=== PATIENT | female | born 1985 | race Caucasian/White ===

== ENCOUNTER 2017-07-23 17:37 | Emergency (ER) | payer BC ==
[2017-07-23 17:41] VITALS: BP 122/90; PULSE 94; RESP 20; TEMP 97.4
--- NOTE | 2017-07-23 18:14 | ED ---
General Adult HPI - General Chief complaint: Dental/Oral Stated complaint: dental pain Time Seen by Provider: 07/23/17 17:43 Source: patient, RN notes reviewed Mode of arrival: ambulatory Limitations: no limitations - History of Present Illness Initial comments: Patient 32-year-old female who presents emergency room today with a chief complaint of increased dental pain. Patient does admit that pain started last night. Does admit that she is trying follow-up the dentist. Patient does admit to some mild swelling. Denies any drainage or discharge. Denies any other symptoms. Patient denies any recent fever, chills, shortness of breath, chest pain, back pain, abdominal pain, nausea or vomiting, numbness or tingling , headaches or visual changes, or any other complaints. - Related Data Home Medications Medication Instructions Recorded Confirmed Albuterol Inhaler [Ventolin 1 - 2 puff INHALATION Q6HR PRN 11/15/14 07/07/15 Inhaler] Citalopram Hydrobromide [CeleXA] 20 mg PO DAILY 11/15/14 07/07/15 lamoTRIgine [LaMICtal] 100 mg PO DAILY 11/15/14 07/07/15 traZODone HCL [Desyrel] 50 mg PO HS 11/15/14 07/07/15 Previous Rx's Medication Instructions Recorded Acetaminophen-Codeine 300-30mg 1 tab PO Q4H PRN #20 tablet 02/16/16 [Tylenol #3] Clindamycin HCl 300 mg PO Q6HR #40 cap 02/16/16 Acetaminophen-Codeine 300-30mg 1 each PO Q6H PRN #8 tablet 07/23/17 [Tylenol #3] Amoxicillin 500 mg PO Q8H 10 Days day 07/23/17 Allergies Allergy/AdvReac Type Severity Reaction Status Date / Time Penicillins Allergy Unknown Verified 07/23/17 17:41 Review of Systems ROS Statement: Those systems with pertinent positive or pertinent negative responses have been documented in the HPI. ROS Other: All systems not noted in ROS Statement are negative. Past Medical History Past Medical History: Asthma History of Any Multi-Drug Resistant Organisms: None Reported Past Surgical History: Cholecystectomy Past Psychological History: Anxiety, Bipolar Smoking Status: Never smoker Past Alcohol Use History: None Reported Past Drug Use History: None Reported General Exam - General Exam Comments Initial Comments: General: The patient is awake and alert, in no distress, and does not appear acutely ill. Eye: Pupils are equal, round and reactive to light, extra-ocular movements are intact. No nystagmus. There is normal conjunctiva bilaterally. No signs of icterus. Ears, nose, mouth and throat: There are moist mucous membranes and no oral lesions. Missing tooth #29. Locally tender of the gum line over tooth #28. No sign of abscess. Uvula midline. Neck: The neck is supple, there is no tenderness or JVD. Musculoskeletal: Normal ROM, no tenderness. Strength 5/5. Sensation intact. Pulses equal bilaterally 2+. Neurological: A&O x 3. CN II-XII intact, There are no obvious motor or sensory deficits. Coordination appears grossly intact. Speech is normal. Skin: Skin is warm and dry and no rashes or lesions are noted. Psychiatric: Cooperative, appropriate mood & affect, normal judgment. Limitations: no limitations Course Vital Signs 07/23/17 17:39 Temperature 97.4 F L Pulse Rate 94 Respiratory 20 Rate Blood Pressure 122/90 O2 Sat by Pulse 100 Oximetry Medical Decision Making - Medical Decision Making Please follow-up dentist as discussed. Please use antibiotic as prescribed. Please return to emergency room for any other concerns. Disposition Clinical Impression: Dental implant pain Disposition: HOME SELF-CARE Condition: Good Instructions: Dental Abscess (ED) Additional Instructions: Please use medication as discussed. Please follow-up with dentist/family doctor in the next 2 days of symptoms have not improved. Please return to emergency room if the symptoms increase or worsen or for any other concerns. Prescriptions: Acetaminophen-Codeine 300-30mg [Tylenol #3] 1 each PO Q6H PRN #8 tablet PRN Reason: Pain Amoxicillin 500 mg PO Q8H 10 Days day Referrals: Brea Randall MD [Primary Care Provider] - 1-2 days Time of Disposition: 18:11
== END 2017-07-23 18:19 | disposition home or self-care (01) ==
LOC: EC 17:37
DX: M27.69 Other endosseous dental implant failure (principal); F31.9 Bipolar disorder, unspecified; F41.9 Anxiety disorder, unspecified; Z88.0 Allergy status to penicillin; Z79.899 Other long term (current) drug therapy
CPT/HCPCS: 99282

== ENCOUNTER → 2018-01-23 | Outpatient (CLI) | payer BC ==
--- NOTE | 2018-01-23 18:06 | US ---
EXAMINATION TYPE: US venous doppler duplex LE LT DATE OF EXAM: 01/23/2018 5:50 PM COMPARISON: NONE CLINICAL HISTORY: M79.604 Pain in lower limb left. left lower leg pain SIDE PERFORMED: left TECHNIQUE: The lower extremity deep venous system is examined utilizing real time linear array sonog lydia with graded compression, doppler sonography and color-flow sonography. VESSELS IMAGED: External Iliac Vein (EIV) Common Femoral Vein Deep Femoral Vein Greater Saphenous Vein * Femoral Vein Popliteal Vein Small Saphenous Vein * Proximal Calf Veins (* superficial vessels) Left Leg: No evidence of DVT as visualized IMPRESSION: Negative exam. No evidence of deep venous thrombosis in the left leg.
== END | disposition home or self-care (01) ==
LOC: RADUSMAIN 17:29
PROVIDERS: ATTEND Physician Assistant
DX: M79.605 Pain in left leg (principal)

== ENCOUNTER 2019-01-05 15:26 | Emergency (ER) | payer BC ==
--- NOTE | 2019-01-05 17:31 | US ---
EXAMINATION TYPE: US venous doppler duplex LE DATE OF EXAM: 01/05/2019 5:20 PM COMPARISON: NONE CLINICAL HISTORY: Pain. Pt states leg pain SIDE PERFORMED: Bilateral TECHNIQUE: The lower extremity deep venous system is examined utilizing real time linear array sonog lydia with graded compression, doppler sonography and color-flow sonography. VESSELS IMAGED: External Iliac Vein (EIV) Common Femoral Vein Deep Femoral Vein Greater Saphenous Vein * Femoral Vein Popliteal Vein Small Saphenous Vein * Proximal Calf Veins (* superficial vessels) Right Leg: Negative for DVT, pt unable to tolerate compression distal femoral vein Left Leg: Negative for DVT, pt unable to tolerate compression distal femoral vein IMPRESSION: No evidence of deep venous thrombosis in both legs.
[2019-01-05 17:47] LABS: Basophils # (A) 0.1 k/uL (0-0.2); Basophils % (A) 1 %; Eosinophils # (A) 0.3 k/uL (0-0.7); Eosinophils % (A) 3 %; HCT 40.9 % (34.0-46.0); HGB 13.4 gm/dL (11.4-16.0); Lymphocytes # (A) 1.7 k/uL (1.0-4.8); Lymphocytes % (A) 18 %; MCH 27.6 pg (25.0-35.0); MCHC 32.7 g/dL (31.0-37.0); MCV 84.4 fL (80.0-100.0); Mean Platelet Volume 6.6; Monocytes # (A) 0.4 k/uL (0-1.0); Monocytes % (A) 5 %; Neutrophils # (A) 6.8 k/uL (1.3-7.7); Neutrophils % (A) 73 %; Platelet Count 307 k/uL (150-450); RBC 4.85 m/uL (3.80-5.40); RDW 13.7 % (11.5-15.5); WBC 9.3 k/uL (3.8-10.6)
[2019-01-05 17:56] LABS: ALT 21 U/L (9-52); AST 20 U/L (14-36); African American GFR (CKD) >90 (>60 ml/min/1.73 sqM); Alkaline Phosphatase 85 U/L (38-126); Anion Gap 7 mmol/L; Blood Urea Nitrogen 13 mg/dL (7-17); Calcium 9.2 mg/dL (8.4-10.2); Carbon Dioxide 26 mmol/L (22-30); Chloride 107 mmol/L (98-107); Creatine Kinase 74 U/L (30-135); Glucose 95 mg/dL (74-99); Magnesium 2.1 mg/dL (1.6-2.3); Potassium 3.8 mmol/L (3.5-5.1); Sodium 140 mmol/L (137-145); Total Bilirubin 0.4 mg/dL (0.2-1.3)
--- NOTE | 2019-01-05 19:13 | CT ---
EXAMINATION TYPE: CT lumbar spine wo con DATE OF EXAM: 01/05/2019 7:03 PM COMPARISON: None HISTORY: Bilateral leg weakness CT DLP: 2040 mGycm Automated exposure control for dose reduction was used. Unenhanced CT of the lumbar spine was performed. Bone and soft tissue window settings are submitted as well as coronal and sagittal reconstructions. Lumbar vertebra have normal alignment. There is narrowing of L4-5 disc space that could be congenital . The sacroiliac joints are intact. There is no lumbar paraspinal mass. There is no evidence of lumba r spinal stenosis. There is bilateral narrowing of the neural foramina at L4-5 due to disc space narrowing. There is ana e low density in the anterior aspect of the spinal canal at the L4 level on the left side. It is not clear if this is due to lumbar disc herniation. This could be due to vasculature. IMPRESSION: No spinal stenosis. There is some neural foraminal narrowing and mild lateral recess stenosis at L4-5 . 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 Lumbar spine is probably not changed compared to old MR scan of 01/22/2014.
--- NOTE | 2019-01-05 19:17 | ED ---
Extremity Problem HPI - General Chief complaint: Extremity Problem,Nontraumatic Stated complaint: Leg pain Time Seen by Provider: 01/05/19 15:42 Source: patient Mode of arrival: wheelchair Limitations: no limitations - History of Present Illness Initial comments: The patient is a 33-year-old female who presents to the emergency room with report of bilateral lower extremity pain. She admits that it started while she was at work today. She describes a sharp shooting sensation which starts in her mid thigh and radiates down toward feet. She denies any back or hip pain. Denies any trauma. States that her pain was so severe that it felt like her l egs would give out on her. She did not have a fall or syncopal episode. She denies any numbness or tingling. No rashes or skin color changes. No history of similar in the past. The pain was too severe that she ended up having to sit down work. Her grandmother then pick her up and brought her to the emergency room for evaluation. She denies any additional symptoms include fevers, chills, nausea or vomiting. No history of DVTs or PEs. No known trauma. No family history of blood clotting disorders. There are no alleviating, precipitating or modifying factors - Related Data Home Medications Medication Instructions Recorded Confirmed Albuterol Inhaler [Ventolin 1 - 2 puff INHALATION Q6HR PRN 11/15/14 07/07/15 Inhaler] Citalopram Hydrobromide [CeleXA] 20 mg PO DAILY 11/15/14 07/07/15 lamoTRIgine [LaMICtal] 100 mg PO DAILY 11/15/14 07/07/15 traZODone HCL [Desyrel] 50 mg PO HS 11/15/14 07/07/15 Previous Rx's Medication Instructions Recorded Acetaminophen-Codeine 300-30mg 1 tab PO Q4H PRN #20 tablet 02/16/16 [Tylenol #3] Clindamycin HCl 300 mg PO Q6HR #40 cap 02/16/16 Acetaminophen-Codeine 300-30mg 1 each PO Q6H PRN #8 tablet 07/23/17 [Tylenol #3] Amoxicillin 500 mg PO Q8H 10 Days day 07/23/17 Allergies Allergy/AdvReac Type Severity Reaction Status Date / Time Penicillins Allergy Unknown Verified 01/05/19 15:37 Review of Systems ROS Statement: Those systems with pertinent positive or pertinent negative responses have been documented in the HPI. ROS Other: All systems not noted in ROS Statement are negative. Past Medical History Past Medical History: Asthma History of Any Multi-Drug Resistant Organisms: None Reported Past Surgical History: Cholecystectomy Past Psychological History: Anxiety, Bipolar Smoking Status: Never smoker Past Alcohol Use History: None Reported Past Drug Use History: None Reported General Exam Limitations: no limitations General appearance: alert, in no apparent distress Head exam: Present: atraumatic, normocephalic, normal inspection Eye exam: Present: normal appearance, PERRL, EOMI. Absent: scleral icterus, conjunctival injection, periorbital swelling ENT exam: Present: normal exam, mucous membranes moist Neck exam: Present: normal inspection. Absent: tenderness, meningismus, ly mphadenopathy Respiratory exam: Present: normal lung sounds bilaterally. Absent: respiratory distress, wheezes, rales, rhonchi, stridor Cardiovascular Exam: Present: regular rate, normal rhythm, normal heart sounds. Absent: systolic murmur, diastolic murmur, rubs, gallop, clicks GI/Abdominal exam: Present: soft, normal bowel sounds. Absent: distended, tenderness, guarding, rebound, rigid Extremities exam: Present: full ROM, tenderness (tenderness to palpation of the anterior thighs), normal capillary refill, other (skin on anterior thighs reveals multiple linear cut tucker in different stages of healing. There are a few, recent abrasions that are scabbed over. They are consistent with self inflicted cut tucker. No surrouding edema or cellulitic changes. 5/5 muscle strength in her bilateral lower extremities. ). Absent: pedal edema, joint swelling, calf tenderness Back exam: Present: normal inspection Neurological exam: Present: alert, oriented X3, CN II-XII intact Psychiatric exam: Present: normal affect, normal mood Skin exam: Present: warm, dry, intact, normal color. Absent: rash Course Vital Signs 01/05/19 01/05/19 15:35 19:51 Temperature 97.8 F 97.9 F Pulse Rate 80 78 Respiratory 16 18 Rate Blood Pressure 122/90 120/71 O2 Sat by Pulse 98 98 Oximetry Medical Decision Making - Medical Decision Making Upon arrival the patient was placed into room 25. I did discuss diagnosis, differential and treatment options after a thorough history and physical exam. I recommended bilateral lower extremity Dopplers as well as a CT of the patient's lumbar spine. I did recommend laboratory studies to evaluate for electrolyte abnormality. The patient did agree to this. During my physical exam I did recognize several lacerations in different stages of healing pn the patient's anterior thigh. These are consistent with self inflicted abrasions. I did confront the patient and she does admit to "cutting". She has a history of depression and sees a therapist. Majority of the lacerations are old however are scattered ones on the right thigh that do appear newer. She reports that she does see her therapist, last of which saw her on the second. Therapist is aware that she does cut and has for several years. The patient denies that she is acutely suicidal, homicidal or hallucinating. The patient does have her laboratory studies performed. She also has her imaging performed. I discussed the results with the patient. She is ambulatory to the bathroom without difficulty. I did recommend evaluation by the social work nurse. She does call and discuss the case with the patient's primary care physician. The patient will need a referral for a psychiatrist. The health and social care teacher does request this so that the patient may be seen sooner by a psychiatrist. The patient does not currently meet inpatient criteria. The patient was comfortable with the treatment plan. She'll be discharged home and needs to follow up with Dr. Randall within 2-4 days. Return to the ED for any new or worsening symptoms. The patient agreed to the treatment plan was discharged home ambulatory in stable condition - Differential Diagnosis acute bilateral leg pain, depression - Lab Data Result diagrams: 01/05/19 17:28 01/05/19 17:24 Lab Results 01/05/19 01/05/19 01/05/19 Range/Units 17:24 17:28 17:54 WBC 9.3 (3.8-10.6) k/uL RBC 4.85 (3.80-5.40) m/uL Hgb 13.4 (11.4-16.0) gm/dL Hct 40.9 (34.0-46.0) % MCV 84.4 (80.0-100.0) fL MCH 27.6 (25.0-35.0) pg MCHC 32.7 (31.0-37.0) g/dL RDW 13.7 (11.5-15.5) % Plt Count 307 (150-450) k/uL Neutrophils % 73 % Lymphocytes % 18 % Monocytes % 5 % Eosinophils % 3 % Basophils % 1 % Neutrophils # 6.8 (1.3-7.7) k/uL Lymphocytes # 1.7 (1.0-4.8) k/uL Monocytes # 0.4 (0-1.0) k/uL Eosinophils # 0.3 (0-0.7) k/uL Basophils # 0.1 (0-0.2) k/uL Sodium 140 (137-145) mmol/L Potassium 3.8 (3.5-5.1) mmol/L Chloride 107 (98-107) mmol/L Carbon Dioxide 26 (22-30) mmol/L Anion Gap 7 mmol/L BUN 13 (7-17) mg/dL Creatinine 0.78 (0.52-1.04) mg/dL Est GFR (CKD-EPI)AfAm >90 (>60 ml/min/1.73 sqM) Est GFR (CKD-EPI)NonAf >90 (>60 ml/min/1.73 sqM) Glucose 95 (74-99) mg/dL Calcium 9.2 (8.4-10.2) mg/dL Magnesium 2.1 (1.6-2.3) mg/dL Total Bilirubin 0.4 (0.2-1.3) mg/dL AST 20 (14-36) U/L ALT 21 (9-52) U/L Alkaline Phosphatase 85 (38-126) U/L Creatine Kinase 74 (30-135) U/L Total Protein 7.0 (6.3-8.2) g/dL Albumin 4.0 (3.5-5.0) g/dL Urine HCG, Qual Not Detected (Not Detectd) Disposition Clinical Impression: Leg pain, bilateral Disposition: HOME SELF-CARE Condition: Stable Instructions (If sedation given, give patient instructions): Leg Pain (ED) Additional Instructions: Please follow-up with your primary care physician and your therapist within one week. Return to the emergency room for any new or worsening symptoms Is patient prescribed a controlled substance at d/c from ED?: No Referrals: Brea Randall MD [Primary Care Provider] - 1-2 days Time of Disposition: 19:17
[2019-01-05 19:52] VITALS: BP 120/71; PULSE 78; RESP 18; TEMP 97.9
== END 2019-01-05 19:52 | disposition home or self-care (01) ==
LOC: EC 15:26
DX: M79.604 Pain in right leg (principal); M79.605 Pain in left leg; S71.111A Laceration without foreign body, right thigh, initial encounter; S71.112D Laceration without foreign body, left thigh, subsequent encounter; M79.671 Pain in right foot; M79.672 Pain in left foot; J45.909 Unspecified asthma, uncomplicated; F31.9 Bipolar disorder, unspecified; F41.9 Anxiety disorder, unspecified; Z88.0 Allergy status to penicillin; Z79.899 Other long term (current) drug therapy; X78.9XXA Intentional self-harm by unspecified sharp object, initial encounter; X78.9XXD Intentional self-harm by unspecified sharp object, subsequent encounter
CPT/HCPCS: 36415; 72131; 80053; 81025; 82550; 83735; 85025; 93970; 99284

== ENCOUNTER → 2019-03-30 | Outpatient (CLI) | payer BC ==
--- NOTE | 2019-03-30 17:32 | MR ---
EXAMINATION TYPE: MR geovanna/ulises wo con DATE OF EXAM: 03/30/2019 COMPARISON: None HISTORY: Neck pain into mid/low back, weakness in legs CONTRAST: Performed utilizing 0 mL intravenous Gadavist gadolinium contrast. TECHNIQUE: Multiplanar multiecho imaging on a 3.0 Anupama magnet is performed through the cervical spin e. FINDINGS: The craniovertebral junction is normal. Vertebral body alignment is normal. There is dis c desiccation in the upper and mid cervical spine. C7-T1: No focal disc herniation or significant disc bulge is evident. No spinal canal stenosis or n eural foraminal stenosis is present. C6-7: No focal disc herniation or significant disc bulge is evident. No spinal canal stenosis or tenisha ral foraminal stenosis is present. C5-6: There is a large broad-based disc bulge with mild anterior thecal sac flattening. No AP spinal canal stenosis present. Neural foramen are patent. C4-5: No focal disc herniation or significant disc bulge is evident. No spinal canal stenosis or tenisha ral foraminal stenosis is present. C3-4: No focal disc herniation or significant disc bulge is evident. No spinal canal stenosis or tenisha ral foraminal stenosis is present. C2-3: No focal disc herniation or significant disc bulge is evident. No spinal canal stenosis or tenisha ral foraminal stenosis is present. IMPRESSIONS: 1. Broad based disc bulge with mild anterior thecal sac flattening without spinal canal stenosis at C 5-C6 level. EXAMINATION TYPE: MR geovanna/ulises wo con DATE OF EXAM: 03/30/2019 COMPARISON: None HISTORY: Neck pain into mid/low back, weakness in legs CONTRAST: Performed utilizing 0 mL intravenous Gadavist gadolinium contrast. TECHNIQUE: Multiplanar, multiecho imaging on a 3.0 Anupama magnet is performed through the thoracic spi ne. Spinal cord maintains normal signal through its visualized course. Vertebral body alignment is normal. Vertebral body heights are preserved. Disc heights are preserved. There is disc desiccation within the mid thoracic levels. At T6-T7 there is right paracentral disc bulging with mild anterior thecal sac impression. This comes in close approximation with the spinal cord. No spinal canal stenosis or cord deformity is evident. No spinal canal stenosis is evident. IMPRESSIONS: 1. Right paracentral disc bulging with mild to moderate anterior thecal sac compression T6-T7. This c omes in close approximation with the spinal cord
== END | disposition home or self-care (01) ==
LOC: RADMRIMAIN 12:43
PROVIDERS: ATTEND Orthopaedic Surgery Orthopaedic Surgery of the Spine
DX: M51.84 Other intervertebral disc disorders, thoracic region (principal); M54.2 Cervicalgia
CPT/HCPCS: 72141; 72146

== ENCOUNTER 2019-07-12 17:36 | Emergency (ER) | payer OTHER, BC ==
[2019-07-12 17:55] VITALS: RESP 18; TEMP 98.2
[2019-07-12] MEDS ORDERED: SODIUM CHLORIDE 0.9% 500 ML 500 ML IV STA (18:37)
[2019-07-12] MEDS ORDERED: MORPHINE SULFATE 4 MG/ML SYRINGE IVP STA (18:40)
[2019-07-12] MEDS ORDERED: ONDANSETRON 4 MG/2 ML VIAL IVP STA (18:40)
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
[2019-07-12 19:10] LABS: Basophils # (A) 0.1 k/uL (0-0.2); Basophils % (A) 1 %; Eosinophils # (A) 0.2 k/uL (0-0.7); Eosinophils % (A) 1 %; HCT 44.4 % (34.0-46.0); HGB 14.6 gm/dL (11.4-16.0); Lymphocytes # (A) 1.2 k/uL (1.0-4.8); Lymphocytes % (A) 10 %; MCHC 32.8 g/dL (31.0-37.0); MCV 85.4 fL (80.0-100.0); Mean Platelet Volume 6.9; Monocytes # (A) 0.5 k/uL (0-1.0); Monocytes % (A) 4 %; Neutrophils # (A) 9.5 k/uL (1.3-7.7); Neutrophils % (A) 82 %; Platelet Count 286 k/uL (150-450); RBC 5.19 m/uL (3.80-5.40); RDW 13.1 % (11.5-15.5); WBC 11.5 k/uL (3.8-10.6)
[2019-07-12 19:31] LABS: ALT 36 U/L (4-34); AST 42 U/L (14-36); African American GFR (CKD) >90 (>60 ml/min/1.73 sqM); Alcohol <10 mg/dL; Alkaline Phosphatase 94 U/L (38-126); Anion Gap 11 mmol/L; Blood Urea Nitrogen 12 mg/dL (7-17); Calcium 9.1 mg/dL (8.4-10.2); Carbon Dioxide 21 mmol/L (22-30); Chloride 108 mmol/L (98-107); Glucose 94 mg/dL (74-99); Non-African American GFR(CKD) >90 (>60 ml/min/1.73 sqM); Sodium 140 mmol/L (137-145); Total Bilirubin 0.8 mg/dL (0.2-1.3); Total Protein 6.9 g/dL (6.3-8.2)
[2019-07-12 19:45] LABS: Potassium 4.5 mmol/L (3.5-5.1)
[2019-07-12 20:03] LABS: Amylase 44 U/L (30-110)
[2019-07-12] MEDS ORDERED: HYDROmorphone 0.5 MG/0.5 ML SYRINGE IVP STA (20:48)
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
--- NOTE | 2019-07-12 22:13 | XR ---
EXAMINATION TYPE: XR chest 2V DATE OF EXAM: 07/12/2019 COMPARISON: 07/07/2015 HISTORY: Cough and fever TECHNIQUE: 2 views FINDINGS: There is no heart failure nor confluent pneumonic infiltrate. Costophrenic angles are clear . There are no hilar masses. IMPRESSION: No active cardiopulmonary disease. No change.
[2019-07-12 23:45] VITALS: BP 126/74; PULSE 77
== END 2019-07-12 23:43 | disposition home or self-care (01) ==
LOC: EC 17:36
DX: S99.912A Unspecified injury of left ankle, initial encounter (principal); R10.10 Upper abdominal pain, unspecified; R04.0 Epistaxis; R60.0 Localized edema; R10.2 Pelvic and perineal pain; M25.551 Pain in right hip; M79.89 Other specified soft tissue disorders; J45.909 Unspecified asthma, uncomplicated; F31.9 Bipolar disorder, unspecified; F41.9 Anxiety disorder, unspecified; Z88.0 Allergy status to penicillin; Z79.899 Other long term (current) drug therapy; Z90.49 Acquired absence of other specified parts of digestive tract; V47.5XXA Car driver injured in collision with fixed or stationary object in traffic accident, initial encounter; Y92.410 Unspecified street and highway as the place of occurrence of the external cause
CPT/HCPCS: 36415; 93005; 80053; 82150; 83690; 84484; 85025; 80320; 73502; 73610; 73630; 71046; 72125; 70486; 70450; 71260; 74177; 99285; 29515; 96374; 96375 ×2; 96361; J2270; J2405; J1170; Q9967

== ENCOUNTER 2021-01-10 13:29 | Emergency (ER) | payer BC, OTHER ==
[2021-01-10 13:38] VITALS: TEMP 98.2
[2021-01-10 14:56] LABS: Basophils # (A) 0.1 k/uL (0-0.2); Basophils % (A) 1 %; Eosinophils # (A) 0.2 k/uL (0-0.7); Eosinophils % (A) 3 %; HCT 45.5 % (34.0-46.0); HGB 15.4 gm/dL (11.4-16.0); Lymphocytes # (A) 1.6 k/uL (1.0-4.8); Lymphocytes % (A) 18 %; MCH 29.3 pg (25.0-35.0); MCHC 33.9 g/dL (31.0-37.0); MCV 86.6 fL (80.0-100.0); Mean Platelet Volume 7.3; Monocytes # (A) 0.4 k/uL (0-1.0); Monocytes % (A) 4 %; Neutrophils # (A) 6.8 k/uL (1.3-7.7); Neutrophils % (A) 74 %; Platelet Count 274 k/uL (150-450); RBC 5.25 m/uL (3.80-5.40); RDW 13.6 % (11.5-15.5); WBC 9.2 k/uL (3.8-10.6)
--- NOTE | 2021-01-10 15:06 | ED ---
Altered Mental Status HPI - General Chief Complaint: Altered Mental Status Stated Complaint: AMS Time Seen by Provider: 01/10/21 13:39 Source: patient, family, RN notes reviewed Mode of arrival: wheelchair Limitations: no limitations - History of Present Illness Initial Comments: This a 35-year-old female presents emergency from with grandmother for valerie luation of altered mental status. Patient referred back to her usual self at work. Mother received a phone call from her work place. Patient states she took 2 of her Lamictal states this is caused her symptoms. Patient states that this was accidental she forgot she took other one.. Patient is not very forthcoming about information. Denies any illicit drug use no alcohol abuse. Denies any self-harm. - Related Data Home Medications Medication Instructions Recorded Confirmed Albuterol Inhaler (Mhu) [Ventolin 1 - 2 puff INHALATION Q6HR PRN 11/15/14 Inhaler] Citalopram Hydrobromide [CeleXA] 20 mg PO DAILY 11/15/14 07/07/15 lamoTRIgine [LaMICtal] 100 mg PO DAILY 11/15/14 07/07/15 traZODone HCL [Desyrel] 50 mg PO HS 11/15/14 07/07/15 Previous Rx's Medication Instructions Recorded Acetaminophen-Codeine 300-30mg 1 tab PO Q4H PRN #20 tablet 02/16/16 [Tylenol #3] Clindamycin HCl 300 mg PO Q6HR #40 cap 02/16/16 Acetaminophen-Codeine 300-30mg 1 each PO Q6H PRN #8 tablet 07/23/17 [Tylenol #3] Amoxicillin 500 mg PO Q8H 10 Days day 07/23/17 Allergies Allergy/AdvReac Type Severity Reaction Status Date / Time Penicillins Allergy Unknown Verified 01/10/21 13:38 Review of Systems ROS Statement: Those systems with pertinent positive or pertinent negative responses have been documented in the HPI. ROS Other: All systems not noted in ROS Statement are negative. Past Medical History Past Medical History: Asthma History of Any Multi-Drug Resistant Organisms: None Reported Past Surgical History: Cholecystectomy Past Psychological History: Anxiety, Bipolar Smoking Status: Never smoker Past Alcohol Use History: None Reported Past Drug Use History: None Reported General Exam Limitations: no limitations General appearance: alert, in no apparent distress Head exam: Present: atraumatic, normocephalic, normal inspection Eye exam: Present: normal appearance, PERRL, EOMI. Absent: scleral icterus, conjunctival injection, periorbital swelling ENT exam: Present: normal exam, normal oropharynx, mucous membranes moist Neck exam: Present: normal inspection, full ROM. Absent: tenderness, meningismus, lymphadenopathy Respiratory exam: Present: normal lung sounds bilaterally. Absent: respiratory distress, wheezes, rales, rhonchi, stridor Cardiovascular Exam: Present: regular rate, normal rhythm, normal heart sounds. Absent: systolic murmur, diastolic murmur, rubs, gallop, clicks Neurological exam: Present: alert, oriented X3, CN II-XII intact, reflexes normal. Absent: motor sensory deficit Skin exam: Present: warm, dry, intact, normal color. Absent: rash Course Vital Signs 01/10/21 01/10/21 13:32 15:14 Temperature 98.2 F Pulse Rate 79 73 Respiratory 17 16 Rate Blood Pressure 116/88 129/85 O2 Sat by Pulse 99 99 Oximetry Medical Decision Making - Medical Decision Making Patient presented for generalized not feeling well felt that she was altered. Patient's workup was negative. Patient is ambulatory with no difficulty has no confusion. This may be related to migraine or her underlying psychological bipolar disorder they do not want to EPS evaluation. - Lab Data Result diagrams: 01/10/21 14:41 01/10/21 14:41 Lab Results 01/10/21 01/10/21 01/10/21 Range/Units 14:41 14:41 14:41 WBC 9.2 (3.8-10.6) k/uL RBC 5.25 (3.80-5.40) m/uL Hgb 15.4 (11.4-16.0) gm/dL Hct 45.5 (34.0-46.0) % MCV 86.6 (80.0-100.0) fL MCH 29.3 (25.0-35.0) pg MCHC 33.9 (31.0-37.0) g/dL RDW 13.6 (11.5-15.5) % Plt Count 274 (150-450) k/uL MPV 7.3 Neutrophils % 74 % Lymphocytes % 18 % Monocytes % 4 % Eosinophils % 3 % Basophils % 1 % Neutrophils # 6.8 (1.3-7.7) k/uL Lymphocytes # 1.6 (1.0-4.8) k/uL Monocytes # 0.4 (0-1.0) k/uL Eosinophils # 0.2 (0-0.7) k/uL Basophils # 0.1 (0-0.2) k/uL Sodium 138 (137-145) mmol/L Potassium 4.7 (3.5-5.1) mmol/L Chloride 105 (98-107) mmol/L Carbon Dioxide 23 (22-30) mmol/L Anion Gap 10 mmol/L BUN 11 (7-17) mg/dL Creatinine 0.75 (0.52-1.04) mg/dL Est GFR (CKD-EPI)AfAm >90 (>60 ml/min/1.73 sqM) Est GFR (CKD-EPI)NonAf >90 (>60 ml/min/1.73 sqM) Glucose 92 (74-99) mg/dL Calcium 9.4 (8.4-10.2) mg/dL Total Bilirubin 0.7 (0.2-1.3) mg/dL AST 34 (14-36) U/L ALT 28 (4-34) U/L Alkaline Phosphatase 116 (38-126) U/L Ammonia 18 (<30) umol/L Total Protein 7.9 (6.3-8.2) g/dL Albumin 4.8 (3.5-5.0) g/dL Urine Color Urine Appearance (Clear) Urine pH (5.0-8.0) Ur Specific [place] (1.001-1.035) Urine Protein (Negative) Urine Glucose (UA) (Negative) Urine Ketones (Negative) Urine Blood (Negative) Urine Nitrite (Negative) Urine Bilirubin (Negative) Urine Urobilinogen (<2.0) mg/dL Ur Leukocyte Esterase (Negative) Urine RBC (0-5) /hpf Urine WBC (0-5) /hpf Ur Squamous Epith Cells (0-4) /hpf Urine Bacteria (None) /hpf Urine Mucus (None) /hpf Urine Yeast (Budding) (None) /hpf Urine Opiates Screen (NotDetected) Ur Oxycodone Screen (NotDetected) Urine Methadone Screen (NotDetected) Ur Propoxyphene Screen (NotDetected) Ur Barbiturates Screen (NotDetected) U Tricyclic Antidepress (NotDetected) Ur Phencyclidine Scrn (NotDetected) Ur Amphetamines Screen (NotDetected) U Methamphetamines Scrn (NotDetected) U Benzodiazepines Scrn (NotDetected) Urine Cocaine Screen (NotDetected) U Marijuana (THC) Screen (NotDetected) Serum Alcohol <10 mg/dL 01/10/21 Range/Units 15:22 WBC (3.8-10.6) k/uL RBC (3.80-5.40) m/uL Hgb (11.4-16.0) gm/dL Hct (34.0-46.0) % MCV (80.0-100.0) fL MCH (25.0-35.0) pg MCHC (31.0-37.0) g/dL RDW (11.5-15.5) % Plt Count (150-450) k/uL MPV Neutrophils % % Lymphocytes % % Monocytes % % Eosinophils % % Basophils % % Neutrophils # (1.3-7.7) k/uL Lymphocytes # (1.0-4.8) k/uL Monocytes # (0-1.0) k/uL Eosinophils # (0-0.7) k/uL Basophils # (0-0.2) k/uL Sodium (137-145) mmol/L Potassium (3.5-5.1) mmol/L Chloride (98-107) mmol/L Carbon Dioxide (22-30) mmol/L Anion Gap mmol/L BUN (7-17) mg/dL Creatinine (0.52-1.04) mg/dL Est GFR (CKD-EPI)AfAm (>60 ml/min/1.73 sqM) Est GFR (CKD-EPI)NonAf (>60 ml/min/1.73 sqM) Glucose (74-99) mg/dL Calcium (8.4-10.2) mg/dL Total Bilirubin (0.2-1.3) mg/dL AST (14-36) U/L ALT (4-34) U/L Alkaline Phosphatase (38-126) U/L Ammonia (<30) umol/L Total Protein (6.3-8.2) g/dL Albumin (3.5-5.0) g/dL Urine Color Yellow Urine Appearance Clear (Clear) Urine pH 6.0 (5.0-8.0) Ur Specific [place] 1.021 (1.001-1.035) Urine Protein Trace H (Negative) Urine Glucose (UA) Negative (Negative) Urine Ketones Negative (Negative) Urine Blood Large H (Negative) Urine Nitrite Negative (Negative) Urine Bilirubin Negative (Negative) Urine Urobilinogen <2.0 (<2.0) mg/dL Ur Leukocyte Esterase Negative (Negative) Urine RBC >182 H (0-5) /hpf Urine WBC 10 H (0-5) /hpf Ur Squamous Epith Cells 2 (0-4) /hpf Urine Bacteria Rare H (None) /hpf Urine Mucus Occasional H (None) /hpf Urine Yeast (Budding) Occasional H (None) /hpf Urine Opiates Screen Not Detected (NotDetected) Ur Oxycodone Screen Not Detected (NotDetected) Urine Methadone Screen Not Detected (NotDetected) Ur Propoxyphene Screen Not Detected (NotDetected) Ur Barbiturates Screen Not Detected (NotDetected) U Tricyclic Antidepress Not Detected (NotDetected) Ur Phencyclidine Scrn Not Detected (NotDetected) Ur Amphetamines Screen Not Detected (NotDetected) U Methamphetamines Scrn Not Detected (NotDetected) U Benzodiazepines Scrn Not Detected (NotDetected) Urine Cocaine Screen Not Detected (NotDetected) U Marijuana (THC) Screen Not Detected (NotDetected) Serum Alcohol mg/dL Disposition Clinical Impression: Atypical migraine, Stress reaction Disposition: HOME SELF-CARE Condition: Stable Instructions (If sedation given, give patient instructions): Altered Mental Status (ED) Additional Instructions: Please return to the Emergency Department if symptoms worsen or any other concerns. Is patient prescribed a controlled substance at d/c from ED?: No Referrals: Brea Randall MD [Primary Care Provider] - 1-2 days Time of Disposition: 16:29
[2021-01-10 15:07] LABS: ALT 28 U/L (4-34); AST 34 U/L (14-36); African American GFR (CKD) >90 (>60 ml/min/1.73 sqM); Albumin 4.8 g/dL (3.5-5.0); Alcohol <10 mg/dL; Alkaline Phosphatase 116 U/L (38-126); Anion Gap 10 mmol/L; Blood Urea Nitrogen 11 mg/dL (7-17); Calcium 9.4 mg/dL (8.4-10.2); Carbon Dioxide 23 mmol/L (22-30); Chloride 105 mmol/L (98-107); Glucose 92 mg/dL (74-99); Non-African American GFR(CKD) >90 (>60 ml/min/1.73 sqM); Sodium 138 mmol/L (137-145); Total Bilirubin 0.7 mg/dL (0.2-1.3); Total Protein 7.9 g/dL (6.3-8.2)
[2021-01-10 15:11] LABS: Potassium 4.7 mmol/L (3.5-5.1)
[2021-01-10 15:16] VITALS: RESP 16
--- NOTE | 2021-01-10 15:32 | CT ---
EXAMINATION TYPE: CT brain wo con DATE OF EXAM: 01/10/2021 COMPARISON: 07/12/2019 HISTORY: AMS, pt hx bipolar CT DLP: 1173.4 mGycm Automated exposure control for dose reduction was used. Images of the brain obtained without contrast. Ventricles have normal size. There is no mass effect nor midline shift. There is no sign of intracran ial hemorrhage. The calvarium is intact. Skull base is intact. IMPRESSION: Negative unenhanced head CT scan. No change compared to old exam.
[2021-01-10 15:38] LABS: Appearance,Urine Clear (Clear); Bacteria,Urine Rare /hpf; Bilirubin,Urine Negative (Negative); Blood,Urine Large (Negative); Budding Yeast,Urine Occasional /hpf; Color,Urine Yellow; Glucose,Urine (UA) Negative (Negative); Ketones,Urine Negative (Negative); Leukocyte Esterase,Urine Negative (Negative); Mucus,Urine Occasional /hpf; Nitrite,Urine Negative (Negative); Protein,Urine Trace (Negative); RBC,Urine >182 /hpf (0-5); Specific Gravity,Urine 1.021 (1.001-1.035); Squamous Epithelial Cell,Urine 2 /hpf (0-4); Urobilinogen,Urine <2.0 mg/dL (<2.0); WBC,Urine 10 /hpf (0-5)
[2021-01-10 15:57] LABS: Amphetamine Screen,Urine Not Detected (NotDetected); Barbiturate Screen,Urine Not Detected (NotDetected); Benzodiazepines Screen,Urine Not Detected (NotDetected); Cocaine Screen,Urine Not Detected (NotDetected); Methadone Screen, Urine Not Detected (NotDetected); Opiate Screen,Urine Not Detected (NotDetected); Oxycodone Screen, Urine Not Detected (NotDetected); Phencyclidine Screen,Urine Not Detected (NotDetected); Tricyclic Antidepressant,Urine Not Detected (NotDetected); Urn Cannabinoid Scrn Not Detected (NotDetected)
[2021-01-10 16:49] VITALS: BP 128/79; PULSE 79
== END 2021-01-10 16:48 | disposition home or self-care (01) ==
LOC: EC 13:29
DX: G43.909 Migraine, unspecified, not intractable, without status migrainosus (principal); R41.82 Altered mental status, unspecified; F43.9 Reaction to severe stress, unspecified; J45.909 Unspecified asthma, uncomplicated; Z88.0 Allergy status to penicillin
CPT/HCPCS: 36415; 70450; 80053; 80175; 80306; 80320; 81001; 82140; 85025; 93005; 99285

== ENCOUNTER 2021-01-12 11:49 | Observation (INO) | payer BC ==
[2021-01-12] MEDS ORDERED: ALBUTEROL NEBULIZED 2.5 MG/3 ML INHALATION PRN (15:18)
[2021-01-12] MEDS: lamoTRIgine 100 MG TAB PO SCH (15:51)
[2021-01-12] MEDS ORDERED: ASPIRIN 81 MG PO STA (17:27)
--- NOTE | 2021-01-12 17:29 | P.CNNES ---
History of Present Illness Consult date: 01/12/21 Requesting physician: Kori Walsh Reason for Consult: Expressive aphasia History of Present Illness: Patient is a 35-year-old female came to the hospital today at 2:02 PM, for expressive aphasia. Patient's grandmother was also present today. Patient appears perfectly fine, except she is mute, and communicating by her handwriting. Patient's symptoms started on 01/10/2021, when she was at work. 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 Patient was brought to the ER, where she underwent computed tomography scan of the head and some blood tests and was released. Patient stayed like this on Tuesday. This morning patient was seen by her primary physician Dr Randall, and patient continued to be tired, quiet, therefore she was referred to ER for further evaluation. Patient tells me by handwriting that she was perfectly fine on Tuesday. While she was at work on Tuesday, she felt very exhausted, very slow and foggy. Her symptoms started at around 10 AM. She denies any numbness tingling focal weakness. She has a mild bifrontal headache which she relates 2/. Patient informed me by handwriting, that she has bipolar since age 19 for which she follows up with a counselor. Patient denies any visual symptoms, any numbness tingling focal weakness or paralysis. She admits to having significant stress at work which she describes as a "retail cashier pressure, customers and worrying a lot about her mother and family". Patient denies any hypertension diabetes and is a nonsmoker. No drugs use. Patient's vitals on arrival blood pressure 126/83, pulse rate 76, temperature 98.5. Patient's blood test from 01/10/2021 shows normal CBC, CMP, ammonia 18, UA shows 10 WBC and urine drug screen negative. Blood alcohol level negative. Lamictal level was 3.7 (2-15). Patient had a computed tomography scan of head performed on 01/10/2021 (4 altered mental status, bipolar), which was normal. Patient currently on Lamictal 150 mg daily, albuterol. Patient does not take control pills. Review of Systems Completely unremarkable, except as mentioned in HPI. All other 14 point of review systems unremarkable. Past Medical History Past Medical History: Asthma History of Any Multi-Drug Resistant Organisms: None Reported Past Surgical History: Cholecystectomy Past Psychological History: Anxiety, Bipolar Smoking Status: Never smoker Past Alcohol Use History: None Reported Past Drug Use History: None Reported Medications and Allergies Home Medications Medication Instructions Recorded Confirmed Type Albuterol Sulfate [Ventolin HFA] 2 puff INHALATION RT-Q6H PRN 01/12/21 01/12/21 History lamoTRIgine [LaMICtal] 150 mg PO DAILY 01/12/21 01/12/21 History Allergies Allergy/AdvReac Type Severity Reaction Status Date / Time Penicillins Allergy Unknown Verified 01/12/21 14:54 Physical Examination - Vital Signs Vital Signs: Vital Signs Temp Pulse Resp BP Pulse Ox 01/12/21 14:58 98.5 F 76 16 126/83 99 Intake and Output 01/12/21 01/12/21 01/12/21 06:59 14:59 22:59 Other: Weight 126.4 kg Patient is a young female, very pleasant, in no acute distress. Patient is alert awake oriented to time place and person. Patient is mute, but her comprehension is perfect. She could follow single and 2 stage commands without any difficulty. Her affect appears very pleasant. Attention, concentration and fund of knowledge is adequate. On cranial examination, pupils are equal, round and reacting to light, visual rojas are full on confrontation, extraocular muscles are intact with no nystagmus. Face is symmetric, tongue protrudes to the midline. Palatal elevation and sensation normal, hearing and shoulder shrug normal, facial sensation normal. On muscle strength testing, there is no pronator drift and the strength is normal in arms and legs distally and proximally. Deep tendon reflexes are 1 in the upper limbs, 2 at the knees, 1 at ankles and plantars downgoing bilaterally. Sensory to touch is equal with no neglect. Cerebellar function showed no ataxia for [id number] testing. No dysdiadochokinesia. Tone and bulk of muscles normal. Gait normal. On general examination, there is no carotid bruit or murmur, S1-S2 audible. Abdomen is soft nontender. Chest is clear. Peripheral pulses are present. No edema. Assessment and Plan Assessment: * 35-year-old female presenting with muteness for last 2 days. Patient's examination otherwise is completely normal. Patient admits to being under a lot of stress at work, and her symptoms started at work. Suspect conversion disorder. CVA less likely. * Bipolar disorder * Obesity. Plan: * We will perform MRI of the brain to rule out acute stroke. * Start aspirin 325 mg daily for now. * Dr. Buddy Freedman Will resume neurology service from the morning.
[2021-01-12] MEDS ORDERED: ACETAMINOPHEN TAB 500 MG TAB PO PRN (17:43)
[2021-01-12] MEDS ORDERED: ALPRAZolam 0.25 MG TAB PO PRN (17:43)
[2021-01-12 18:07] LABS: Basophils # (A) 0.1 k/uL (0-0.2); Basophils % (A) 1 %; Eosinophils # (A) 0.3 k/uL (0-0.7); Eosinophils % (A) 2 %; HCT 42.4 % (34.0-46.0); HGB 14.7 gm/dL (11.4-16.0); Lymphocytes # (A) 1.7 k/uL (1.0-4.8); Lymphocytes % (A) 14 %; MCH 29.7 pg (25.0-35.0); MCHC 34.6 g/dL (31.0-37.0); MCV 85.9 fL (80.0-100.0); Mean Platelet Volume 8.8; Monocytes # (A) 0.4 k/uL (0-1.0); Monocytes % (A) 4 %; Neutrophils # (A) 9.3 k/uL (1.3-7.7); Neutrophils % (A) 78 %; Platelet Count 293 k/uL (150-450); RBC 4.94 m/uL (3.80-5.40); RDW 13.8 % (11.5-15.5); WBC 11.9 k/uL (3.8-10.6)
--- NOTE | 2021-01-12 19:46 | HP ---
HISTORY AND PHYSICAL DATE OF SERVICE: 01/12/2021 CHIEF COMPLAINT: Difficulty in speaking. HISTORY OF PRESENT ILLNESS: This 35-year-old woman with a past medical history of multiple medical problems such as asthma, history of bipolar, history of cholecystomy, anxiety, being followed Dr. 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 The patient apparently since Tuesday had difficulty in speaking. The patient came to the emergency room; was brought in by the grandmother for a change in mental status. The grandmother apparently received a phone call from her workplace. She took two of the Lamictal, which caused her symptoms, and it was reported that the patient took and she took one for the other one. Apparently she was not very forthcoming about the information; however, a CT scan in the ER was normal and the patient was discharged with a diagnosis of atypical migraine and stress reaction. However, the patient continued to be dysphasic. The patient was unable to say anything, but the patient was able to write answers to the questions. Dr. Randall called us directly and the patient was admitted as a direct admission for further evaluation and treatment. Evaluation by Dr. Nunez is in progress at this time. MRI scan has been ordered. There is no history of any fever, rigors or chills. No history of headache, loss of consciousness, seizures at this time. PAST MEDICAL HISTORY: Asthma, bipolar, anxiety, cholecystectomy. HOME MEDICATIONS: Lamictal 150 mg p.o. daily, albuterol p.r.n. ALLERGIES: PENICILLIN. FAMILY HISTORY: No history of heart disease or strokes in the family. SOCIAL HISTORY: No history of smoking. No history of alcohol intake. 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 REVIEW OF SYSTEMS: ENT: No diminished hearing. No diminished vision. CARDIOVASCULAR SYSTEM: No angina, palpitations. RESPIRATORY SYSTEM: No cough, hemoptysis. GI: No nausea, vomiting. : No dysuria. NERVOUS SYSTEM: As mentioned earlier. ALLERGY/IMMUNOLOGY: No asthma or hay fever. MUSCULOSKELETAL: As mentioned earlier. HEMATOLOGY/ONCOLOGY: No history of anemia. ENDOCRINE: No history of diabetes or hypothyroidism. CONSTITUTIONAL: As mentioned earlier. DERMATOLOGY: Negative. RHEUMATOLOGY: Negative. PSYCHIATRY: As mentioned earlier. PHYSICAL EXAMINATION: Patient is conscious but dysphasic. The patient is able to answer the questions by writing on a piece of paper. Pulse 76, blood pressure 126/83, respirations 16, temperature 98.5, pulse ox 99% on room air. HEENT: Conjunctivae normal. NECK: No jugular venous distention. CARDIOVASCULAR: S1, S2 muffled. Ejection systolic murmur present. RESPIRATION: Breath sounds diminished at the bases. No rhonchi. No crackles. ABDOMEN: Soft, obese, nontender. No mass palpable. LEGS: No edema. No swelling. NERVOUS SYSTEM: Higher functions as mentioned earlier. Moves all 4 limbs. No focal motor or sensory deficit. The patient is dysphasic. Otherwise no signs of cerebellar dysfunction. SKIN: No ulcer, rash, bleeding. JOINTS: No active deforming arthropathy. LYMPHATICS: No lymph node palpable in neck, axillae or groin. LABS: INR is 1. Other labs which were recently done show CBC within normal limits. Coags are normal. Chemistry: CMP is within normal limits. Urine showed some hematuria. Drug screen was done recently that is also negative. Lamictal level was also normal. ASSESSMENT: 1. Dysphasia for evaluation. Rule out TIA. Rule out conversion disorder. 2. History of asthma. 3. History of anxiety, bipolar. 4. Ejection systolic murmur. 5. History of cholecystectomy. 6. Obesity with body mass index of 47.8. RECOMMENDATIONS AND DISCUSSION: In this 35-year-old woman who presented with multiple complex medical issues, we will monitor the patient closely. We will review the results of MRI. I would also recommend a full neurovascular workup, including 2D echo with Doppler and carotid ultrasound to evaluate for the cardiac murmur to rule out the possibility of any cerebrovascular risk factors. Otherwise, psychiatry consultation has also been suggested, especially if the MRI is normal. Otherwise, prognosis is guarded because of multiple complex medical issues. Further recommendations to follow. Discussed with the patient and with staff. A copy of this dictation is being forwarded to Dr. Randall, who is the primary physician. MMODL / IJN: [id number] /
[2021-01-12 19:49] LABS: ALT 17 U/L (4-34); AST 20 U/L (14-36); African American GFR (CKD) >90 (>60 ml/min/1.73 sqM); Albumin 3.8 g/dL (3.5-5.0); Albumin/Globulin Ratio 1.4; Alkaline Phosphatase 82 U/L (38-126); Anion Gap 8 mmol/L; Blood Urea Nitrogen 14 mg/dL (7-17); Calcium 9.2 mg/dL (8.4-10.2); Carbon Dioxide 25 mmol/L (22-30); Chloride 106 mmol/L (98-107); Globulin 2.7 g/dL; Glucose 102 mg/dL (74-99); Non-African American GFR(CKD) >90 (>60 ml/min/1.73 sqM); Potassium 3.9 mmol/L (3.5-5.1); Sodium 139 mmol/L (137-145); Total Bilirubin 0.4 mg/dL (0.2-1.3); Total Protein 6.5 g/dL (6.3-8.2)
--- NOTE | 2021-01-12 19:49 | MR ---
EXAMINATION TYPE: MR brain wo con DATE OF EXAM: 01/12/2021 COMPARISON: None HISTORY: Expressive aphasia since 8-14. Multiplanar multiecho imaging of the brain without contrast. Diffusion images show no evidence of an acute infarct. Ventricles have fairly normal size. There is n o mass effect nor midline shift. There is no evidence of intracranial hemorrhage. [place]-white matter s tructures have fairly normal signal pattern. There is no evidence of cerebral edema. Brainstem is int act. Cerebellum is intact. There is no evidence of orbital mass. Corpus callosum is intact. There is no evidence of a sellar mass. IMPRESSION: MR scan of the brain is within normal limits.
--- NOTE | 2021-01-12 20:04 | XR ---
EXAMINATION TYPE: XR chest 1V portable DATE OF EXAM: 01/12/2021 COMPARISON: 07/12/2019 HISTORY: Short of breath TECHNIQUE: FINDINGS: Heart and mediastinum are normal. Lungs are clear of consolidation. There are no hilar mass es. I see no definite pleural effusion. Bony thorax is intact. IMPRESSION: No active cardiopulmonary disease. No adverse change.
[2021-01-12] MEDS: HEPARIN SODIUM,PORCINE/PF 5,000 UNIT/0.5 ML SYRINGE SQ SCH (20:17)
--- NOTE | 2021-01-12 23:14 | US ---
EXAMINATION TYPE: US carotid duplex BILAT DATE OF EXAM: 01/12/2021 COMPARISON: CT, MR brain. CLINICAL HISTORY: stroke. Stroke per order. EXAM MEASUREMENTS: RIGHT: Peak Systolic Velocity (PSV) cm/sec ----- Right CCA: 72.9 ----- Right ICA: 71.2 ----- Right ECA: 57.9 ICA/CCA ratio: 1.0 RIGHT: End Diastole cm/sec ----- Right CCA: 19.0 ----- Right ICA: 24.1 ----- Right ECA: 11.6 LEFT: Peak Systolic Velocity (PSV) cm/sec ----- Left CCA: 74.0 ----- Left ICA: 72.1 ----- Left ECA: 67.4 ICA/CCA ratio: 1.0 LEFT: End Diastole cm/sec ----- Left CCA: 17.9 ----- Left ICA: 13.8 ----- Left ECA: 8.1 VERTEBRALS (direction of flow): Right Vertebral: Antegrade Left Vertebral: Antegrade Rhythm: Normal Intimal thickening seen bilaterally. No elevated velocities at this time. IMPRESSION: There is antegrade flow in the vertebral arteries. The images and measurements suggest less than 10% stenosis in both internal carotid arteries. NASCET criteria was used in interpretation of this exam? Criteria for Assigning % of Stenosis / Diameter reduction (Estimation based on the indirect measurements of the internal carotid artery velocities (ICA PSV). 1. Normal (no stenosis)=ICA PSV < 125 cm/s: ratio < 2.0: ICA EDV<40 cm/s. 2. Less than 50% stenosis=ICA PSV < 125 cm/s: ratio < 2.0: ICA EDV<40 cm/s. 3. 50 to 69% stenosis=ICA PSV of 125 to 230 cm/s: ration 2.0 ? 4.0: ICA EDV 40-100 cm/s. 4. Greater than 70% stenosis to near occlusion= ICA PSV > 230 cm/s: ratio > 4.0: ICA EDV > 100 cm/s. 5. Near occlusion= ICA PSV velocities may be low or undetectable: variable ratio and ICA EDV. 6. Total occlusion=unable to detect flow.
[2021-01-13] MEDS: HEPARIN SODIUM,PORCINE/PF 5,000 UNIT/0.5 ML SYRINGE SQ SCH ×2 (07:35→20:19)
[2021-01-13] MEDS: lamoTRIgine 100 MG TAB PO SCH (07:35)
[2021-01-13] MEDS: PANTOPRAZOLE 40 MG TABLET PO SCH (07:35)
[2021-01-13 10:49] LABS: Amorphous Sediment,Urine Rare /hpf; Amphetamine Screen,Urine Not Detected (NotDetected); Appearance,Urine Cloudy (Clear); Bacteria,Urine Rare /hpf; Barbiturate Screen,Urine Not Detected (NotDetected); Benzodiazepines Screen,Urine Not Detected (NotDetected); Bilirubin,Urine Negative (Negative); Blood,Urine Large (Negative); Cocaine Screen,Urine Not Detected (NotDetected); Color,Urine Yellow; Glucose,Urine (UA) Negative (Negative); Hyaline Casts,Urine 1 /lpf (0-2); Ketones,Urine Negative (Negative); Leukocyte Esterase,Urine Large (Negative); Methadone Screen, Urine Not Detected (NotDetected); Mucus,Urine Occasional /hpf; Nitrite,Urine Negative (Negative); Opiate Screen,Urine Not Detected (NotDetected); Oxycodone Screen, Urine Not Detected (NotDetected); PH, Urine 6.5 (5.0-8.0); Phencyclidine Screen,Urine Not Detected (NotDetected); Protein,Urine Negative (Negative); RBC,Urine 3 /hpf (0-5); Specific Gravity,Urine 1.019 (1.001-1.035); Squamous Epithelial Cell,Urine 5 /hpf (0-4); Tricyclic Antidepressant,Urine Not Detected (NotDetected); Urn Cannabinoid Scrn Not Detected (NotDetected); Urobilinogen,Urine <2.0 mg/dL (<2.0); WBC,Urine 10 /hpf (0-5)
[2021-01-13 11:03] LABS: Basophils # (A) 0.05 X 10*3/uL (0.00-0.10); Basophils % (A) 0.6 %; Eosinophils # (A) 0.21 X 10*3/uL (0.04-0.35); Eosinophils % (A) 2.6 %; HCT 40.3 % (37.2-46.3); HGB 13.2 g/dL (12.0-15.0); Lymphocytes # (A) 1.86 X 10*3/uL (0.90-5.00); Lymphocytes % (A) 23.4 %; MCH 28.5 pg (27.0-32.0); MCHC 32.8 g/dL (32.0-37.0); Mean Platelet Volume 9.3 fL (9.5-12.2); Monocytes # (A) 0.52 X 10*3/uL (0.20-1.00); Monocytes % (A) 6.5 %; Neutrophils # (A) 5.27 X 10*3/uL (1.80-7.70); Neutrophils % (A) 66.5 %; Platelet Count 283 X 10*3/uL (140-440); RBC 4.63 X 10*6/uL (4.10-5.20); RDW 13.3 % (11.5-14.5); WBC 7.94 X 10*3/uL (4.50-10.00)
--- NOTE | 2021-01-13 13:19 | P.PN ---
Subjective Progress Note Date: 01/13/21 I'm seeing the patient for the first time. Please refer to Dr. Nunez's note for further details. Per the patient's nurse and she feels patient had no further episodes. There is no seizure activity noted. No focal slowing or any neurological deficits noted that. She continues to hesitate. Objective - Vital Signs Vital signs: Vital Signs Temp 98.0 F 01/13/21 07:00 Pulse 80 01/13/21 07:00 Resp 16 01/13/21 07:00 BP 105/70 01/13/21 07:00 Pulse Ox 95 01/13/21 07:00 Intake & Output 01/12/21 01/13/21 01/13/21 18:59 06:59 18:59 Intake Total 100 118 Balance 100 118 Weight 126.4 kg Intake: Oral 100 118 Other: Voiding Method Toilet Toilet # Voids 1 - Exam GENERAL: The patient is lying in bed and is not in acute distress. NEUROLOGICAL: Higher mental function: The patient is awake, alert, oriented to self, place and time. Patient hesitates in responding but with motivation she is responding appropriately. Patient is following simple and complex commands without any difficulty. No neglect. Cranial nerves: The pupils are round, equal and reactive to light and accommodation. Visual rojas are full to confrontation throughout. Extraocular movement is intact no nystagmus is noted. Facial sensation is normal to touch throughout. The facial strength is normal throughout. Hearing is normal bilaterally to hand rub. Tongue is midline and moved [id number] without any difficulty. No dysarthria is noted. Shoulder shrug is normal bilaterally. Motor: The strength is 5 over 5 throughout. Normal tone and bulk. Cerebellum: Normal finger to nose heel to james bilaterally. Sensation: Sensation is normal to touch throughout. Reflexes are 2+ throughout. Plantars are downgoing bilaterally. - Labs CBC & Chem 7: 01/13/21 06:39 01/12/21 19:16 Labs: Abnormal Lab Results - Last 24 Hours (Table) 01/12/21 01/12/21 01/12/21 Range/Units 10:01 16:06 19:16 WBC 11.9 H (3.8-10.6) k/uL MPV (9.5-12.2) fL Neutrophils # 9.3 H (1.3-7.7) k/uL Glucose 102 H (74-99) mg/dL Urine Appearance Cloudy H (Clear) Urine Blood Large H (Negative) Ur Leukocyte Esterase Large H (Negative) Urine WBC 10 H (0-5) /hpf Ur Squamous Epith Cells 5 H (0-4) /hpf Amorphous Sediment Rare H (None) /hpf Urine Bacteria Rare H (None) /hpf Urine Mucus Occasional H (None) /hpf 01/13/21 Range/Units 06:39 WBC (3.8-10.6) k/uL MPV 9.3 L (9.5-12.2) fL Neutrophils # (1.3-7.7) k/uL Glucose (74-99) mg/dL Urine Appearance (Clear) Urine Blood (Negative) Ur Leukocyte Esterase (Negative) Urine WBC (0-5) /hpf Ur Squamous Epith Cells (0-4) /hpf Amorphous Sediment (None) /hpf Urine Bacteria (None) /hpf Urine Mucus (None) /hpf Assessment and Plan Assessment: * 35-year-old female presenting with muteness for last 2 days. Patient's examination otherwise is completely normal. Patient admits to being under a lot of stress at work, and her symptoms started at work. Suspect conversion disorder. CVA less likely. * Bipolar disorder * Obesity. Plan: MRI of brain is reported as within normal limits. Carotid duplex is reported as there is antegrade flow in the vertebral arteries. Images and measurements suggest less than 10% stenosis in both internal carotid arteries. TSH is 1.740 which is within normal limits. Psychiatry is consulted. We'll defer the rest of the medical management to the primary team From a neurological perspective the patient is clear for discharge. There is no further neurological workup needed at this time. Please reconsult neurology if needed. Buddy Freedman MD Neuro-Hospitalist Time with Patient: Less than 30
--- NOTE | 2021-01-13 16:34 | P.PN ---
Subjective Progress Note Date: 01/13/21 This is a 35-year-old female who was recently admitted with change in mental status along with continuing to be dysphasic. She was seen and evaluated by neurology and MRI of the brain was done showing within normal limits and no evidence of sellar mass and corpus callosum is intact. Patient is continued on medical and home medications have been resumed. Patient continues to be mute although nods and responds appropriately to questions and commands and writes her questions out on paper. Patient awaiting psychiatric evaluation. Carotid Dopplers were also done and images suggests less than 10% stenosis in both internal carotid arteries. Blood count improved and is 7.94, hemoglobin is 13.2. Review of systems: Constitutional: No reports of fatigue, fever, or chills Cardiovascular: No reports of chest pain or palpitations Respiratory: No reports of shortness of breath or cough GI: No reports of nausea, vomiting, or diarrhea : No reports of dysuria or retention Neurovascular: No reports of weakness or numbness All medications have been reviewed Active Medications Acetaminophen (Acetaminophen Tab 500 Mg Tab) 500 mg PO Q6HR PRN PRN Reason: Fever and/ or Pain Last Admin: 01/13/21 15:02 Dose: 500 mg Documented by: Albuterol Sulfate (Albuterol Nebulized 2.5 Mg/3 Ml) 2.5 mg INHALATION RT-Q6H PRN PRN Reason: Shortness Of Breath Alprazolam (Alprazolam 0.25 Mg Tab) 0.25 mg PO TID PRN PRN Reason: Anxiety Heparin Sodium (Porcine) (Heparin Sodium,Porcine/Pf 5,000 Unit/0.5 Ml Syringe) 5,000 unit SQ Q12HR [facility] Last Admin: 01/13/21 07:35 Dose: 5,000 unit Documented by: Lamotrigine (Lamotrigine 100 Mg Tab) 150 mg PO DAILY [facility] Last Admin: 01/13/21 07:35 Dose: 150 mg Documented by: Pantoprazole Sodium (Pantoprazole 40 Mg Tablet) 40 mg PO [id number]-[id number] [facility] Last Admin: 01/13/21 07:35 Dose: 40 mg Documented by: Objective - Vital Signs Vital signs: Vital Signs Temp 98.0 F 01/13/21 07:00 Pulse 80 01/13/21 07:00 Resp 16 01/13/21 07:00 BP 105/70 01/13/21 07:00 Pulse Ox 95 01/13/21 07:00 Intake & Output 01/12/21 01/13/21 01/13/21 18:59 06:59 18:59 Intake Total 100 340 Balance 100 340 Weight 126.4 kg Intake: Oral 100 340 Other: Voiding Method Toilet Toilet # Voids 1 - Exam Gen: This is a 35-year-old female lying in bed awake, alert and oriented 3, well-developed, well-nourished, morbidly obese. Temp is 98F, pulse is 80, respirations are 16, blood pressure 105/70, oxygen saturation is 95% on room air. HEENT: Head is atraumatic, normocephalic. Pupils equal, round. Sclerae is anicteric. NECK: Supple. No JVD. No lymphadenopathy. No thyromegaly. LUNGS: Diminished breath sounds bilaterally with no wheezing or rhonchi noted. No intercostal retractions. HEART: Regular rate and rhythm. No murmur. ABDOMEN: Soft. Obese. Bowel sounds are present. No masses. No tenderness. EXTREMITIES: No pedal edema. No calf tenderness. NEUROLOGICAL: Patient is awake, alert and oriented x3. Cranial nerves 2 through 12 are grossly intact. - Labs CBC & Chem 7: 01/13/21 06:39 01/12/21 19:16 Labs: Abnormal Lab Results - Last 24 Hours (Table) 01/12/21 01/12/21 01/12/21 Range/Units 10:01 16:06 19:16 WBC 11.9 H (3.8-10.6) k/uL MPV (9.5-12.2) fL Neutrophils # 9.3 H (1.3-7.7) k/uL Glucose 102 H (74-99) mg/dL Urine Appearance Cloudy H (Clear) Urine Blood Large H (Negative) Ur Leukocyte Esterase Large H (Negative) Urine WBC 10 H (0-5) /hpf Ur Squamous Epith Cells 5 H (0-4) /hpf Amorphous Sediment Rare H (None) /hpf Urine Bacteria Rare H (None) /hpf Urine Mucus Occasional H (None) /hpf 01/13/21 Range/Units 06:39 WBC (3.8-10.6) k/uL MPV 9.3 L (9.5-12.2) fL Neutrophils # (1.3-7.7) k/uL Glucose (74-99) mg/dL Urine Appearance (Clear) Urine Blood (Negative) Ur Leukocyte Esterase (Negative) Urine WBC (0-5) /hpf Ur Squamous Epith Cells (0-4) /hpf Amorphous Sediment (None) /hpf Urine Bacteria (None) /hpf Urine Mucus (None) /hpf Assessment and Plan Assessment: Dysphasia for evaluation. Ruled out TIA. Rule out conversion disorder History of asthma history of anxiety/bipolar Ejection systolic murmur History of cholecystectomy Obesity with a body mass index of 47.8 Full code Recommendations and discussion: Recommend continue with current medications and management. Neurology evaluat ing the patient and recommending outpatient follow-up. MRI of the brain was within normal limits. Carotid Doppler study showing [place] 10% stenosis bilaterally. Psychiatry has been consulted and pending at this time. 2-D echo done which is pending at this time. Will await psychiatry evaluation with possible discharge. Patient is medically stable and clear for discharge once evaluated by psychiatry.
--- NOTE | 2021-01-13 16:40 | P.DS ---
Providers Date of admission: 01/12/21 14:02 Expected date of discharge: 01/13/21 Attending physician: Kori Walsh Consults: 01/12/21 14:55 Consult Physician Stat Consulting Provider: Rochelle Nunez Consult Reason/Comments: Expressive Aphasia Do you want consulting provider notified?: Yes Placement Type Exists?: Yes 01/12/21 17:38 Consult Physician Routine Consulting Provider: Carlos Eduardo Mckeon Consult Reason/Comments: bipolar Do you want consulting provider notified?: Already Contacted Primary care physician: Brea Randall Hospital Course: Final Diagnosis Dysphasia for evaluation. Ruled out TIA. Rule out conversion disorder History of asthma history of anxiety/bipolar Ejection systolic murmur History of cholecystectomy Obesity with a body mass index of 47.8 Full code Discharge disposition Patient is being transferred in a stable condition with guarded prognosis to inpatient psychiatric unit here at [facility]. Patient will follow-up with Dr. Randall in the outpatient setting upon discharge. Total time taken is greater than 35 minutes. Hospital course This is a 35-year-old female who was recently admitted with change in mental status along with continuing to be dysphasic. She was seen and evaluated by neurology and MRI of the brain was done showing within normal limits and no evidence of sellar mass and corpus callosum is intact. Patient is continued on medical and home medications have been resumed. Patient continues to be mute although nods and responds appropriately to questions and commands and writes her questions out on paper. Patient awaiting psychiatric evaluation. Carotid Dopplers were also done and images suggests less than 10% stenosis in both internal carotid arteries. Blood count improved and is 7.94, hemoglobin is 13.2. 01/13/2021 Patient undergoing neurological workup and has been cleared by neurology recommending outpatient follow-up and continued outpatient follow-up with community mental health and psychiatry services. 2-D echo was done and pending and can follow-up with primary care provider for results. Patient was seen and evaluated by psychiatry recommending inpatient psychiatric hospitalization for further evaluation. Patient is medically stable and clear for transfer to inpatient psychiatric unit today. Currently no reports of chest pain, shortness of breath, or palpitations. Patient is afebrile. No reports of nausea or vomiting and patient is tolerating diet. On exam vital signs are stable. Cardio S1, S2 are muffled. Respiratory system shows diminished breath sounds at the bases with no wheezing or rhonchi noted. Abdomen is soft and obese, and nontender. Nervous system shows no focal deficits. Please refer to medication reconciliation sheet for a list of medications. Patient Condition at Discharge: Stable Plan - Discharge Summary New Discharge Prescriptions: No Action lamoTRIgine [LaMICtal] 150 mg PO DAILY Albuterol Sulfate [Ventolin HFA] 2 puff INHALATION RT-Q6H PRN PRN Reason: Shortness Of Breath Discharge Medication List Albuterol Sulfate [Ventolin HFA] 2 puff INHALATION RT-Q6H PRN 01/12/21 [History] lamoTRIgine [LaMICtal] 150 mg PO DAILY 01/12/21 [History] Activity/Diet/Wound Care/Special Instructions: Patient is medically stable and cleared for transfer to inpatient psychiatric unit Discharge Disposition: TRANSFER TO PSYCH HOSP/UNIT
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
[2021-01-14 08:11] VITALS: BP 113/74; PULSE 80; RESP 17; TEMP 98
[2021-01-14] MEDS: lamoTRIgine 100 MG TAB PO SCH (08:12)
[2021-01-14] MEDS: PANTOPRAZOLE 40 MG TABLET PO SCH (08:12)
[2021-01-14] MEDS: HEPARIN SODIUM,PORCINE/PF 5,000 UNIT/0.5 ML SYRINGE SQ SCH (08:13)
--- NOTE | 2021-01-14 11:00 | ECHOF ---
Referral Reason:Stroke MEASUREMENTS -------- HEIGHT: 162.6 cm WEIGHT: 126.1 kg BP: 108/70 RVIDd: 2.7 cm (< 3.3) IVSd: 1.2 cm (0.6 - 1.1) LVIDd: 3.9 cm (3.9 - 5.3) LVPWd: 1.2 cm (0.6 - 1.1) IVSs: 1.0 cm LVIDs: 2.8 cm LVPWs: 1.3 cm LAESV Index (A-L): 18.13 ml/m Ao Diam: 3.0 cm (2.0 - 3.7) AV Cusp: 2.0 cm (1.5 - 2.6) LA Diam: 3.3 cm (2.7 - 3.8) MV E Sanchez: 0.84 m/s MV DecT: 143 ms MV A Sanchez: 0.99 m/s MV E/A Ratio: 0.85 RAP: 5.00 mmHg RVSP: 15.21 mmHg FINDINGS -------- Sinus rhythm. This was a technically difficult study with suboptimal views. The left ventricular size is normal. There is mild concentric left ventricular hypertrophy. Overa ll left ventricular systolic function is low-normal with, an EF between 50 - 55 %. The diastolic fi lling pattern is normal for the age of the patient 14.17. The right ventricle is normal in size. Normal LA size by volume 22+/-6 ml/m2. The right atrium was not well visualized. 5.0mg of Lumason was utilized for enhancement of images Interatrial and interventricular septum intact. There is no evidence of aortic regurgitation. There is no evidence of aortic stenosis. No mitral regurgitation. Mild tricuspid regurgitation present. There is no evidence of pulmonary hypertension. The right v entricular systolic pressure, as measured by Doppler, is 15.21mmHg. There is no pulmonic regurgitation present. The aortic root size is normal. IVC Not well visulized. There is no pericardial effusion. CONCLUSIONS -------- 1. The left ventricular size is normal. 2. There is mild concentric left ventricular hypertrophy. 3. Overall left ventricular systolic function is low-normal with, an EF between 50 - 55 %. 4. The diastolic filling pattern is normal for the age of the patient 14.17 5. Mild tricuspid regurgitation present. DITTO MACHINE OPERATOR: Cristina Miller RDCS
== END 2021-01-14 12:49 | disposition home or self-care (01) ==
LOC: 6NMEDSUR 14:02
PROVIDERS: ADMIT Hospitalist; ATTEND Hospitalist
DX: R47.01 Aphasia (principal); R47.02 Dysphasia; R41.82 Altered mental status, unspecified; F43.9 Reaction to severe stress, unspecified; J45.909 Unspecified asthma, uncomplicated; F41.9 Anxiety disorder, unspecified; F31.9 Bipolar disorder, unspecified; G43.009 Migraine without aura, not intractable, without status migrainosus; I07.1 Rheumatic tricuspid insufficiency; E66.9 Obesity, unspecified; Z68.42 Body mass index [BMI] 45.0-49.9, adult; R01.1 Cardiac murmur, unspecified; R31.9 Hematuria, unspecified; Z79.899 Other long term (current) drug therapy; Z90.49 Acquired absence of other specified parts of digestive tract; Z88.0 Allergy status to penicillin
CPT/HCPCS: 96372 ×3; 93306; 92523; 80053; 84443; 85025 ×2; 85610; 81001; 80306; 71045; 93880; 70551; G0379; G0378 ×3; Q9950; J1644 ×3

== ENCOUNTER 2021-08-02 14:02 | Emergency (ER) | payer BC ==
[2021-08-02 14:13] VITALS: RESP 18
[2021-08-02 14:19] LABS: Glucose,Whole Blood 91 mg/dL (75-99)
[2021-08-02] MEDS ORDERED: SODIUM CHLORIDE 0.9% 1,000 ML IV STA (14:19)
--- NOTE | 2021-08-02 14:24 | ED ---
Neuro HPI - General Chief Complaint: Neuro Symptoms/Deficit Stated Complaint: Dizziness Time Seen by Provider: 08/02/21 14:02 Source: patient, EMS, RN notes reviewed, old records reviewed Mode of arrival: EMS Limitations: no limitations - History of Present Illness Is the patient presenting with stroke symptoms?: No Initial Comments: 36-year-old female presents from a local outpatient clinic by EMS with complaints of onset today at work of dizziness also some trouble with speech. She also complains of a 2/10 frontal headache. 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 No other current complaints or modifying factors of note he was previously worked up last year including MRI was negative she was diagnosed with a possible conversion reaction. Please see the old records - Related Data Home Medications: Home Medications Medication Instructions Recorded Confirmed Albuterol Sulfate [Ventolin HFA] 2 puff INHALATION RT-Q6H PRN 01/12/21 01/12/21 lamoTRIgine [LaMICtal] 150 mg PO DAILY 01/12/21 01/12/21 Previous Rx's Medication Instructions Recorded Acetaminophen Tab [Tylenol] 500 mg PO Q6HR PRN tab 01/14/21 Allergies/Adverse Reactions: Allergies Allergy/AdvReac Type Severity Reaction Status Date / Time Penicillins Allergy Unknown Verified 08/02/21 14:12 Review of Systems ROS Statement: Those systems with pertinent positive or pertinent negative responses have been documented in the HPI. ROS Other: All systems not noted in ROS Statement are negative. General Exam - General Exam Comments Initial Comments: This is a well-developed well-nourished awake alert oriented 3 female straightening some slow responses verbally. She was witnessed to be able to ambulate from the EMS stretcher to the emergency department bed. Limitations: no limitations General appearance: alert, anxious Head exam: Present: atraumatic, normocephalic, normal inspection Eye exam: Present: normal appearance, PERRL, EOMI. Absent: scleral icterus, conjunctival injection, periorbital swelling ENT exam: Present: mucous membranes dry Neck exam: Present: normal inspection, full ROM, other (No stridor JVD or bruits). Absent: tenderness, meningismus, lymphadenopathy Respiratory exam: Present: normal lung sounds bilaterally. Absent: respiratory distress, wheezes, rales, rhonchi, stridor Cardiovascular Exam: Present: regular rate, normal rhythm, normal heart sounds. Absent: systolic murmur, diastolic murmur, rubs, gallop, clicks GI/Abdominal exam: Present: soft, normal bowel sounds. Absent: distended, tenderness, guarding, rebound, rigid Rectal exam: Present: deferred Extremities exam: Present: normal inspection, full ROM, normal capillary refill. Absent: tenderness, pedal edema, joint swelling, calf tenderness Back exam: Present: normal inspection Neurological exam: Present: alert, oriented X3, CN II-XII intact Psychiatric exam: Present: normal mood, flat affect Skin exam: Present: warm, dry, intact, normal color. Absent: rash Stroke MDM - Lab Data Result diagrams: 08/02/21 15:44 08/02/21 15:44 Lab Results 08/02/21 08/02/21 08/02/21 Range/Units 14:18 15:44 15:44 WBC 8.7 (3.8-10.6) k/uL RBC 4.57 (3.80-5.40) m/uL Hgb 13.3 (11.4-16.0) gm/dL Hct 39.4 (34.0-46.0) % MCV 86.3 (80.0-100.0) fL MCH 29.1 (25.0-35.0) pg MCHC 33.8 (31.0-37.0) g/dL RDW 14.4 (11.5-15.5) % Plt Count 281 (150-450) k/uL MPV 7.3 Neutrophils % 71 % Lymphocytes % 19 % Monocytes % 5 % Eosinophils % 3 % Basophils % 1 % Neutrophils # 6.2 (1.3-7.7) k/uL Lymphocytes # 1.7 (1.0-4.8) k/uL Monocytes # 0.4 (0-1.0) k/uL Eosinophils # 0.3 (0-0.7) k/uL Basophils # 0.1 (0-0.2) k/uL PT 10.1 (9.0-12.0) sec INR 0.9 (<1.2) APTT 22.3 (22.0-30.0) sec Sodium (137-145) mmol/L Potassium (3.5-5.1) mmol/L Chloride (98-107) mmol/L Carbon Dioxide (22-30) mmol/L Anion Gap mmol/L BUN (7-17) mg/dL Creatinine (0.52-1.04) mg/dL Est GFR (CKD-EPI)AfAm (>60 ml/min/1.73 sqM) Est GFR (CKD-EPI)NonAf (>60 ml/min/1.73 sqM) Glucose (74-99) mg/dL POC Glucose (mg/dL) 91 (75-99) mg/dL POC Glu Accounts Officer ID Zhao Blum Calcium (8.4-10.2) mg/dL Magnesium (1.6-2.3) mg/dL Total Bilirubin (0.2-1.3) mg/dL AST (14-36) U/L ALT (4-34) U/L Alkaline Phosphatase (38-126) U/L Troponin I (0.000-0.034) ng/mL Total Protein (6.3-8.2) g/dL Albumin (3.5-5.0) g/dL TSH (0.465-4.680) mIU/L Urine Color Urine Appearance (Clear) Urine pH (5.0-8.0) Ur Specific [place] (1.001-1.035) Urine Protein (Negative) Urine Glucose (UA) (Negative) Urine Ketones (Negative) Urine Blood (Negative) Urine Nitrite (Negative) Urine Bilirubin (Negative) Urine Urobilinogen (<2.0) mg/dL Ur Leukocyte Esterase (Negative) Urine RBC (0-5) /hpf Urine WBC (0-5) /hpf Ur Squamous Epith Cells (0-4) /hpf Urine Bacteria (None) /hpf Urine Mucus (None) /hpf Urine HCG, Qual (Not Detectd) Urine Opiates Screen (NotDetected) Ur Oxycodone Screen (NotDetected) Urine Methadone Screen (NotDetected) Ur Propoxyphene Screen (NotDetected) Ur Barbiturates Screen (NotDetected) U Tricyclic Antidepress (NotDetected) Ur Phencyclidine Scrn (NotDetected) Ur Amphetamines Screen (NotDetected) U Methamphetamines Scrn (NotDetected) U Benzodiazepines Scrn (NotDetected) Urine Cocaine Screen (NotDetected) U Marijuana (THC) Screen (NotDetected) 08/02/21 08/02/21 08/02/21 Range/Units 15:44 15:44 16:03 WBC (3.8-10.6) k/uL RBC (3.80-5.40) m/uL Hgb (11.4-16.0) gm/dL Hct (34.0-46.0) % MCV (80.0-100.0) fL MCH (25.0-35.0) pg MCHC (31.0-37.0) g/dL RDW (11.5-15.5) % Plt Count (150-450) k/uL MPV Neutrophils % % Lymphocytes % % Monocytes % % Eosinophils % % Basophils % % Neutrophils # (1.3-7.7) k/uL Lymphocytes # (1.0-4.8) k/uL Monocytes # (0-1.0) k/uL Eosinophils # (0-0.7) k/uL Basophils # (0-0.2) k/uL PT (9.0-12.0) sec INR (<1.2) APTT (22.0-30.0) sec Sodium 136 L (137-145) mmol/L Potassium 4.2 (3.5-5.1) mmol/L Chloride 108 H (98-107) mmol/L Carbon Dioxide 21 L (22-30) mmol/L Anion Gap 7 mmol/L BUN 15 (7-17) mg/dL Creatinine 0.72 (0.52-1.04) mg/dL Est GFR (CKD-EPI)AfAm >90 (>60 ml/min/1.73 sqM) Est GFR (CKD-EPI)NonAf >90 (>60 ml/min/1.73 sqM) Glucose 99 (74-99) mg/dL POC Glucose (mg/dL) (75-99) mg/dL POC Glu Accounts Officer ID Calcium 8.7 (8.4-10.2) mg/dL Magnesium 2.0 (1.6-2.3) mg/dL Total Bilirubin 0.7 (0.2-1.3) mg/dL AST 33 (14-36) U/L ALT 36 H (4-34) U/L Alkaline Phosphatase 80 (38-126) U/L Troponin I <0.012 (0.000-0.034) ng/mL Total Protein 6.9 (6.3-8.2) g/dL Albumin 3.8 (3.5-5.0) g/dL TSH 2.810 (0.465-4.680) mIU/L Urine Color Yellow Urine Appearance Cloudy H (Clear) Urine pH 5.5 (5.0-8.0) Ur Specific [place] 1.027 (1.001-1.035) Urine Protein Negative (Negative) Urine Glucose (UA) Negative (Negative) Urine Ketones Negative (Negative) Urine Blood Negative (Negative) Urine Nitrite Negative (Negative) Urine Bilirubin Negative (Negative) Urine Urobilinogen <2.0 (<2.0) mg/dL Ur Leukocyte Esterase Moderate H (Negative) Urine RBC 2 (0-5) /hpf Urine WBC 4 (0-5) /hpf Ur Squamous Epith Cells 7 H (0-4) /hpf Urine Bacteria Rare H (None) /hpf Urine Mucus Rare H (None) /hpf Urine HCG, Qual (Not Detectd) Urine Opiates Screen Not Detected (NotDetected) Ur Oxycodone Screen Not Detected (NotDetected) Urine Methadone Screen Not Detected (NotDetected) Ur Propoxyphene Screen Not Detected (NotDetected) Ur Barbiturates Screen Not Detected (NotDetected) U Tricyclic Antidepress Not Detected (NotDetected) Ur Phencyclidine Scrn Not Detected (NotDetected) Ur Amphetamines Screen Not Detected (NotDetected) U Methamphetamines Scrn Not Detected (NotDetected) U Benzodiazepines Scrn Not Detected (NotDetected) Urine Cocaine Screen Not Detected (NotDetected) U Marijuana (THC) Screen Not Detected (NotDetected) 08/02/21 Range/Units 16:03 WBC (3.8-10.6) k/uL RBC (3.80-5.40) m/uL Hgb (11.4-16.0) gm/dL Hct (34.0-46.0) % MCV (80.0-100.0) fL MCH (25.0-35.0) pg MCHC (31.0-37.0) g/dL RDW (11.5-15.5) % Plt Count (150-450) k/uL MPV Neutrophils % % Lymphocytes % % Monocytes % % Eosinophils % % Basophils % % Neutrophils # (1.3-7.7) k/uL Lymphocytes # (1.0-4.8) k/uL Monocytes # (0-1.0) k/uL Eosinophils # (0-0.7) k/uL Basophils # (0-0.2) k/uL PT (9.0-12.0) sec INR (<1.2) APTT (22.0-30.0) sec Sodium (137-145) mmol/L Potassium (3.5-5.1) mmol/L Chloride (98-107) mmol/L Carbon Dioxide (22-30) mmol/L Anion Gap mmol/L BUN (7-17) mg/dL Creatinine (0.52-1.04) mg/dL Est GFR (CKD-EPI)AfAm (>60 ml/min/1.73 sqM) Est GFR (CKD-EPI)NonAf (>60 ml/min/1.73 sqM) Glucose (74-99) mg/dL POC Glucose (mg/dL) (75-99) mg/dL POC Glu Accounts Officer ID Calcium (8.4-10.2) mg/dL Magnesium (1.6-2.3) mg/dL Total Bilirubin (0.2-1.3) mg/dL AST (14-36) U/L ALT (4-34) U/L Alkaline Phosphatase (38-126) U/L Troponin I (0.000-0.034) ng/mL Total Protein (6.3-8.2) g/dL Albumin (3.5-5.0) g/dL TSH (0.465-4.680) mIU/L Urine Color Urine Appearance (Clear) Urine pH (5.0-8.0) Ur Specific [place] (1.001-1.035) Urine Protein (Negative) Urine Glucose (UA) (Negative) Urine Ketones (Negative) Urine Blood (Negative) Urine Nitrite (Negative) Urine Bilirubin (Negative) Urine Urobilinogen (<2.0) mg/dL Ur Leukocyte Esterase (Negative) Urine RBC (0-5) /hpf Urine WBC (0-5) /hpf Ur Squamous Epith Cells (0-4) /hpf Urine Bacteria (None) /hpf Urine Mucus (None) /hpf Urine HCG, Qual Not Detected (Not Detectd) Urine Opiates Screen (NotDetected) Ur Oxycodone Screen (NotDetected) Urine Methadone Screen (NotDetected) Ur Propoxyphene Screen (NotDetected) Ur Barbiturates Screen (NotDetected) U Tricyclic Antidepress (NotDetected) Ur Phencyclidine Scrn (NotDetected) Ur Amphetamines Screen (NotDetected) U Methamphetamines Scrn (NotDetected) U Benzodiazepines Scrn (NotDetected) Urine Cocaine Screen (NotDetected) U Marijuana (THC) Screen (NotDetected) - NIH Stroke Scale 1a. Level of Consciousness: (0) alert 1b. LOC Questions: (0) answers correctly 1c. LOC Commands: (0) performs tasks correctly 2. Best Gaze: (0) normal 3. Visual: (0) no visual loss 4. Facial Palsy: (0) normal symmetrical movement 5a. Motor Arm Left: (0) no drift 5b. Motor Arm Right: (0) no drift 6a. Motor Leg Left: (0) no drift 6b. Motor Leg Right: (0) no drift 7. Limb Ataxia: (0) absent 8. Sensory: (0) normal 9. Best Language: (1) mild/moderate aphasia 10. Dysarthria: (0) normal 11. Extinction/Inattention: (0) no abnormality - Medical Decision Making Patient did demonstrate clear resolution of her symptoms he presentation is consistent with her prior episode other than the headache she states. He after discussion size she was going to be discharged with her mother is a follow-up with Dr. Randall tomorrow. She will get a note for work. The presentation doesn't appear to be consistent with the previous one which also included a possible conversion reaction. - EKG Data -: EKG Interpreted by Me EKG shows normal: sinus rhythm (EKG shows sinus rhythm 83. Interval 1:30 QRS duration 90 daily since QTC 358/398 low-voltage borderline EKG.) Past Medical History Past Medical History: Asthma History of Any Multi-Drug Resistant Organisms: None Reported Past Surgical History: Cholecystectomy Past Psychological History: Anxiety, Bipolar Smoking Status: Never smoker Past Alcohol Use History: None Reported Past Drug Use History: None Reported Course Vital Signs 08/02/21 08/02/21 14:07 15:14 Temperature 99.0 F Pulse Rate 87 99 Respiratory 18 18 Rate Blood Pressure 114/87 114/86 O2 Sat by Pulse 100 97 Oximetry - Reevaluation(s) Reevaluation #1: 08/02/21 16:48 Reevaluation patient finds that she feels much improved at this time Disposition Clinical Impression: Aphasia, Dizziness Disposition: HOME SELF-CARE Condition: Good Instructions (If sedation given, give patient instructions): Aphasia (DC), Dizziness (ED) Is patient prescribed a controlled substance at d/c from ED?: No Referrals: Brea Randall MD [Primary Care Provider] - 1-2 days
--- NOTE | 2021-08-02 15:48 | CT ---
EXAMINATION TYPE: CT brain wo con DATE OF EXAM: 08/02/2021 COMPARISON: 01/10/2021 HISTORY: syncope CT DLP: 1072.4 mGycm Automated exposure control for dose reduction was used. Ventricles have normal size. There is no mass effect or midline shift. There is no sign of intracrani al hemorrhage. The calvarium is intact. There is normal aeration of the mastoid sinuses. IMPRESSION: Normal unenhanced head CT scan. No change.
--- NOTE | 2021-08-02 15:52 | XR ---
EXAMINATION TYPE: XR chest 2V DATE OF EXAM: 08/02/2021 COMPARISON: 01/12/2021 HISTORY: Short of breath TECHNIQUE: 2 views FINDINGS: Heart and mediastinum are normal. Lungs are clear. Diaphragm is normal. Bony thorax appears normal. IMPRESSION: Normal chest. No change.
[2021-08-02 15:54] LABS: Basophils # (A) 0.1 k/uL (0-0.2); Basophils % (A) 1 %; Eosinophils # (A) 0.3 k/uL (0-0.7); Eosinophils % (A) 3 %; HCT 39.4 % (34.0-46.0); HGB 13.3 gm/dL (11.4-16.0); Lymphocytes # (A) 1.7 k/uL (1.0-4.8); Lymphocytes % (A) 19 %; MCH 29.1 pg (25.0-35.0); MCHC 33.8 g/dL (31.0-37.0); MCV 86.3 fL (80.0-100.0); Mean Platelet Volume 7.3; Monocytes # (A) 0.4 k/uL (0-1.0); Monocytes % (A) 5 %; Neutrophils # (A) 6.2 k/uL (1.3-7.7); Neutrophils % (A) 71 %; Platelet Count 281 k/uL (150-450); RBC 4.57 m/uL (3.80-5.40); RDW 14.4 % (11.5-15.5); WBC 8.7 k/uL (3.8-10.6)
[2021-08-02 16:04] LABS: ALT 36 U/L (4-34); AST 33 U/L (14-36); African American GFR (CKD) >90 (>60 ml/min/1.73 sqM); Albumin 3.8 g/dL (3.5-5.0); Alkaline Phosphatase 80 U/L (38-126); Anion Gap 7 mmol/L; Blood Urea Nitrogen 15 mg/dL (7-17); Calcium 8.7 mg/dL (8.4-10.2); Carbon Dioxide 21 mmol/L (22-30); Chloride 108 mmol/L (98-107); Glucose 99 mg/dL (74-99); Non-African American GFR(CKD) >90 (>60 ml/min/1.73 sqM); Potassium 4.2 mmol/L (3.5-5.1); Sodium 136 mmol/L (137-145); Total Bilirubin 0.7 mg/dL (0.2-1.3); Total Protein 6.9 g/dL (6.3-8.2)
[2021-08-02 16:13] LABS: INR 0.9 (<1.2); Partial Thromboplastin Time 22.3 sec (22.0-30.0); Prothrombin Time 10.1 sec (9.0-12.0)
[2021-08-02 16:31] LABS: Appearance,Urine Cloudy (Clear); Bacteria,Urine Rare /hpf; Bilirubin,Urine Negative (Negative); Blood,Urine Negative (Negative); Color,Urine Yellow; Glucose,Urine (UA) Negative (Negative); Ketones,Urine Negative (Negative); Leukocyte Esterase,Urine Moderate (Negative); Mucus,Urine Rare /hpf; Nitrite,Urine Negative (Negative); PH, Urine 5.5 (5.0-8.0); Protein,Urine Negative (Negative); RBC,Urine 2 /hpf (0-5); Specific Gravity,Urine 1.027 (1.001-1.035); Squamous Epithelial Cell,Urine 7 /hpf (0-4); Urobilinogen,Urine <2.0 mg/dL (<2.0); WBC,Urine 4 /hpf (0-5)
[2021-08-02 16:37] LABS: Amphetamine Screen,Urine Not Detected (NotDetected); Barbiturate Screen,Urine Not Detected (NotDetected); Benzodiazepines Screen,Urine Not Detected (NotDetected); Cocaine Screen,Urine Not Detected (NotDetected); Methadone Screen, Urine Not Detected (NotDetected); Opiate Screen,Urine Not Detected (NotDetected); Oxycodone Screen, Urine Not Detected (NotDetected); Phencyclidine Screen,Urine Not Detected (NotDetected); Tricyclic Antidepressant,Urine Not Detected (NotDetected); Urn Cannabinoid Scrn Not Detected (NotDetected)
[2021-08-02] MEDS ORDERED: KETOROLAC 15 MG/ML 1 ML VIAL IVP STA (16:48)
[2021-08-02 17:17] VITALS: BP 112/90; PULSE 76; TEMP 98.3
== END 2021-08-02 17:17 | disposition home or self-care (01) ==
LOC: EC 14:02
DX: R42 Dizziness and giddiness (principal); R47.01 Aphasia; J45.909 Unspecified asthma, uncomplicated; F41.9 Anxiety disorder, unspecified; F31.9 Bipolar disorder, unspecified; Z88.0 Allergy status to penicillin; Z90.49 Acquired absence of other specified parts of digestive tract
CPT/HCPCS: 99285; 96374; 96361 ×2; 36415; 93005; 80053; 84443; 83735; 84484; 85025; 85610; 85730; 81001; 81025; 80306; 71046; 70450; J1885

== ENCOUNTER 2022-11-14 10:28 | Emergency (ER) | payer BC ==
[2022-11-14 10:43] VITALS: RESP 18
[2022-11-14] MEDS ORDERED: ORPHENADRINE 30 MG/ML 2 ML VIAL IM STA (11:07)
[2022-11-14] MEDS ORDERED: KETOROLAC 15 MG/ML 1 ML VIAL IM STA (11:07)
--- NOTE | 2022-11-14 11:18 | ED ---
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 She is going to physical therapy after meniscus tear surgery August 23. States that she had physical therapy on doing lunges. She states that she does have a problem with an uneven pelvis diagnosed by MRI [place] [address] Tellez. Patient states that she has not tried any Tylenol or Motrin for her pain. Denies any fevers or bowel or bladder incontinence. Does have a history of asthma. -: days(s) (3) Location: pelvis Severity scale (1-10): 7 Consistency: constant Improves with: immobilization Worsens with: movement, other (standing) Associated Symptoms: denies other symptoms Treatments Prior to Arrival: none - Related Data Home Medications Medication Instructions Recorded Confirmed Albuterol Sulfate [Ventolin HFA] 2 puff INHALATION RT-Q6H PRN 01/12/21 01/12/21 lamoTRIgine [LaMICtal] 150 mg PO DAILY 01/12/21 01/12/21 Previous Rx's Medication Instructions Recorded Acetaminophen Tab [Tylenol] 500 mg PO Q6HR PRN tab 01/14/21 Cyclobenzaprine [Flexeril] 10 mg PO TID PRN #15 tab 11/14/22 Ibuprofen [Motrin] 600 mg PO Q8HR PRN #30 tab 11/14/22 Allergies Allergy/AdvReac Type Severity Reaction Status Date / Time Penicillins Allergy Unknown Verified 11/14/22 10:43 Review of Systems ROS Statement: Those systems with pertinent positive or pertinent negative responses have been documented in the HPI. ROS Other: All systems not noted in ROS Statement are negative. Past Medical History Past Medical History: Asthma History of Any Multi-Drug Resistant Organisms: None Reported Past Surgical History: Cholecystectomy Past Psychological History: Anxiety, Bipolar Smoking Status: Never smoker Past Alcohol Use History: None Reported Past Drug Use History: None Reported General Exam Limitations: no limitations General appearance: alert, in no apparent distress Head exam: Present: atraumatic Eye exam: Present: normal appearance. Absent: scleral icterus, conjunctival injection, periorbital swelling Neck exam: Absent: tenderness, meningismus Respiratory exam: Absent: respiratory distress, accessory muscle use Cardiovascular Exam: Present: regular rate GI/Abdominal exam: Present: soft Extremities exam: Present: normal capillary refill. Absent: tenderness, pedal edema, calf tenderness Back exam: Present: paraspinal tenderness (right lumbar/sacral). Absent: CVA tenderness (R), CVA tenderness (L), vertebral tenderness Expanded Back exam: Absent: saddle anesthesia Neurological exam: Present: alert, oriented X3 Psychiatric exam: Present: normal affect, normal mood Skin exam: Present: warm, dry. Absent: normal color, cyanosis, diaphoretic, petechiae, pallor Course Vital Signs 11/14/22 11/14/22 11/14/22 10:40 11:25 12:39 Temperature 98 F 98.1 F Pulse Rate 84 78 82 Respiratory 18 18 18 Rate Blood Pressure 111/77 133/84 128/80 O2 Sat by Pulse 99 99 98 Oximetry Medical Decision Making - Medical Decision Making Was pt. sent in by a medical professional or institution (, PA, STRINGER MACHINE TENDER, urgent care, hospital, or retirement...) When possible be specific @ -No Did you speak to anyone other than the patient for history (EMS, parent, family, police, friend...)? What history was obtained from this source @ -No Did you review nursing and triage notes (agree or disagree)? Why? @ -I reviewed and agree with nursing and triage notes Were old charts reviewed (outside hosp., previous admission, EMS record, old EKG, old radiological studies, urgent care reports/EKG's, retirement records)? Report findings @ -No old charts were reviewed Differential Diagnosis (chest pain, altered mental status, abdominal pain women, abdominal pain men, vaginal bleeding, weakness, fever, dyspnea, syncope, headache, dizziness, GI bleed, back pain, seizure, CVA, palpatations, mental health, musculoskeletal)? @ -Musculoskeletal pain, hip flexor strain, osteoarthritis EKG interpreted by me (3pts min.). @ -n/a X-rays interpreted by me (1pt min.). @ -None done CT interpreted by me (1pt min.). @ -None done U/S interpreted by me (1pt. min.). @ -None done What testing was considered but not performed or refused? (CT, X-rays, U/S, labs)? Why? @ -None What meds were considered but not given or refused? Why? @ -None Did you discuss the management of the patient with other professionals (professionals i.e. DrKrista, PA, STRINGER MACHINE TENDER, lab, RT, psych nurse, licensed clinical social worker, flight service agent, teacher, first aid officer, telehealth case manager)? Give summary @ -No Was smoking cessation discussed for >3mins.? @ -No Was critical care preformed (if so, how long)? @ -No Were there social determinants of health that impacted care today? How? (Homelessness, low income, unemployed, alcoholism, drug addiction, transportation, low edu. Level, literacy, decrease access to med. care, [facility], rehab)? @ -No Was there de-escalation of care discussed even if they declined (Discuss DNR or withdrawal of care, Hospice)? DNR status @ -No What co-morbidities impacted this encounter? (DM, HTN, Smoking, COPD, CAD, Cancer, CVA, ARF, Chemo, Hep., AIDS, mental health diagnosis, sleep apnea, morbid obesity)? @ -Obesity, asthma Was patient admitted / discharged? Hospital course, mention meds given and route, prescriptions, significant lab abnormalities, going to OR and other pertinent info. 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 She is going to physical therapy after meniscus tear surgery August 23. States that she had physical therapy on doing lunges. She states that she does have a problem with an uneven pelvis diagnosed by MRI [place] [address] Tellez. Patient states that she has not tried any Tylenol or Motrin for her pain. Denies any fevers or bowel or bladder incontinence. Does have a history of asthma. No concerning red flags symptoms. Patient feeling better after Flexeril and Motrin. Her pain is likely related to physical therapy and lunges that she was doing on . She was given a prescription for Motrin and Flexeril directed to follow up with her physical therapist and primary care doctor. She is agreeable to this plan of care. Case discussed with Dr. Pradhan. Undiagnosed new problem with uncertain prognosis? @ -No Drug Therapy requiring intensive monitoring for toxicity (Heparin, Nitro, Insulin, Cardizem)? @ -No Were any procedures done? @ -No Diagnosis/symptom? @ -Musculoskeletal pain, hip flexor strain Acute, or Chronic, or Acute on Chronic? @ -Acute Uncomplicated (without systemic symptoms) or Complicated (systemic symptoms)? @ -Uncomplicated Side effects of treatment? @ -No Exacerbation, Progression, or Severe Exacerbation? @ -No Poses a threat to life or bodily function? How? (Chest pain, [place], [place], pneumonia, PE, COPD, DKA, ARF, appy, cholecystitis, CVA, Diverticulitis, Homicidal, Suicidal, threat to staff... and all critical care pts) @ -No Disposition Clinical Impression: Musculoskeletal pain of left lower extremity, Musculoskeletal pain of right lower extremity, Strain of flexor muscle of hip Disposition: HOME SELF-CARE Condition: Good Instructions (If sedation given, give patient instructions): Musculoskeletal Pain (ED) Additional Instructions: Tylenol and or Motrin as needed for pain and discomfort. Flexeril as a muscle relaxer. Do not drive or operate machinery when taking Flexeril. Follow-up with the physical therapist and primary care doctor next week. Increase your fluid intake. Prescriptions: Cyclobenzaprine [Flexeril] 10 mg PO TID PRN #15 tab PRN Reason: Muscle Spasm Ibuprofen [Motrin] 600 mg PO Q8HR PRN #30 tab PRN Reason: Pain Is patient prescribed a controlled substance at d/c from ED?: No Referrals: Brea Randall MD [Primary Care Provider] - 1-2 days Time of Disposition: 12:25
[2022-11-14] MEDS ORDERED: LIDOCAINE 5% PATCH TOPICAL SCH (12:00)
[2022-11-14 12:41] VITALS: BP 128/80; PULSE 82; TEMP 98.1
== END 2022-11-14 12:40 | disposition home or self-care (01) ==
LOC: EC 10:28
DX: S76.012A Strain of muscle, fascia and tendon of left hip, initial encounter (principal); S76.011A Strain of muscle, fascia and tendon of right hip, initial encounter; J45.909 Unspecified asthma, uncomplicated; E66.9 Obesity, unspecified; Z79.899 Other long term (current) drug therapy; Z88.0 Allergy status to penicillin; Z68.42 Body mass index [BMI] 45.0-49.9, adult; X58.XXXA Exposure to other specified factors, initial encounter
CPT/HCPCS: 99283; 96372 ×2; J2360; J1885

== ENCOUNTER → 2023-11-04 | Outpatient (CLI) | payer BC ==
--- NOTE | 2023-11-07 10:06 | MR ---
EXAMINATION TYPE: MR lumbar spine wo con DATE OF EXAM: 11/07/2023 COMPARISON: 01/22/2014 HISTORY: 38-year-old female M54.50, low back pain TECHNIQUE: Multiplanar, multisequence images of the lumbar spine were acquired without IV contrast. FINDINGS: Vertebral body heights are preserved and alignment is maintained. Conus medullaris is normal. Heterogeneous, diminished marrow signal suggesting red marrow hyperplasia. T1-weighted sequences show ed no bone marrow placement. Hypertrophic facet arthropathy is present in the mid and lower lumbar spine. There is bony ankylosis along the posterior elements across L4-L5. Similar narrowed disc at L4-L5 likely due to the posterior element ankylosis, possibly on a congenita l basis. Progressive mild intervertebral disc desiccation throughout the remainder of the lumbar spine now. Mi [id number] degenerative disc disease progressed in the lower thoracic spine with desiccated and n arrowed disks and new anterior endplate spondylosis. Small sacral Tarlov cysts are noted measuring up to 8 mm. No large focal disc herniation or significant spinal canal stenosis. On the right, changes associated mild neuroforaminal stenosis at L4-L5. On the left, changes result in similar moderate to severe neuroforaminal stenosis at L4-L5. No prevertebral paravertebral soft tissue around the cecum. IMPRESSION: 1. 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 Findings possibly on a congenital basis. Clinically correlate. There is some superimpo sed hypertrophic facet arthropathy and resultant moderate to severe left L4-L5 neuroforaminal stenosi s. 2. Progressive mild degenerative disc disease throughout the lumbar spine and [id number] within the visualized lower thoracic spine. No focal disc herniation or significant spinal canal stenosis.
== END | disposition home or self-care (01) ==
LOC: RADMRIMAIN 19:30
PROVIDERS: ATTEND Orthopaedic Surgery Orthopaedic Surgery of the Spine
DX: M47.26 Other spondylosis with radiculopathy, lumbar region (principal); M99.73 Connective tissue and disc stenosis of intervertebral foramina of lumbar region; M51.15 Intervertebral disc disorders with radiculopathy, thoracolumbar region; M25.562 Pain in left knee; M79.10 Myalgia, unspecified site
CPT/HCPCS: 72148

== ENCOUNTER 2024-05-06 13:33 | Emergency (ER) | payer BC ==
[2024-05-06 13:39] VITALS: RESP 18; TEMP 98
--- NOTE | 2024-05-06 14:01 | XR ---
2 view chest HISTORY: Difficulty breathing. COMPARISON: 08/02/2021. TECHNIQUE: PA and lateral views chest obtained. FINDINGS: The lungs are clear of consolidative, interstitial or masslike opacity. There is no pleural effusion, pleural thickening or pneumothorax. The heart, pulmonary vasculature, mediastinum and sp are within normal limits. The osseous structures and soft tissues of the thorax are intact. IMPRESSION: No significant abnormality. No acute cardiopulmonary disease. [facility], , 05/06/2024 1:59 PM
[2024-05-06] MEDS: KETOROLAC 15 MG/ML 1 ML VIAL IVP STA (14:09)
[2024-05-06 14:20] LABS: Basophils % (A) 0 %; Eosinophils # (A) 0.3 k/uL (0-0.7); Eosinophils % (A) 3 %; HCT 39.2 % (34.0-46.0); Lymphocytes # (A) 1.8 k/uL (1.0-4.8); Lymphocytes % (A) 19 %; MCH 27.5 pg (25.0-35.0); MCHC 33.1 g/dL (31.0-37.0); MCV 83.3 fL (80.0-100.0); Mean Platelet Volume 7.4; Monocytes # (A) 0.4 k/uL (0-1.0); Monocytes % (A) 4 %; Neutrophils # (A) 6.6 k/uL (1.3-7.7); Neutrophils % (A) 72 %; Platelet Count 298 k/uL (150-450); RBC 4.71 m/uL (3.80-5.40); RDW 14.4 % (11.5-15.5); WBC 9.1 k/uL (3.8-10.6)
--- NOTE | 2024-05-06 14:24 | ED ---
SOB HPI - General Chief Complaint: Shortness of Breath Stated Complaint: JOJO Time Seen by Provider: 05/06/24 13:39 Source: patient, RN notes reviewed Mode of arrival: EMS Limitations: no limitations - History of Present Illness Initial Comments: This is a 39-year-old female who presents to the emergency department for shortness of breath and chest pain. Patient was walking around at work when she started to develop shortness of breath and some chest pain. The pain was worse when she tried to breathe. She then feels like she lost her voice. Denies any history of similar symptoms in the past. States that symptoms are still present. MD Complaint: shortness of breath, chest pain, pain with inspiration - Related Data Home Medications Medication Instructions Recorded Confirmed Albuterol Sulfate [Ventolin HFA] 2 puff INHALATION RT-Q6H PRN 01/12/21 01/12/21 lamoTRIgine [LaMICtal] 150 mg PO DAILY 01/12/21 01/12/21 Previous Rx's Medication Instructions Recorded Acetaminophen Tab [Tylenol] 500 mg PO Q6HR PRN tab 01/14/21 Cyclobenzaprine [Flexeril] 10 mg PO TID PRN #15 tab 11/14/22 Ibuprofen [Motrin] 600 mg PO Q8HR PRN #30 tab 11/14/22 Albuterol Sulfate [Albuterol 1 - 2 puff PO Q4-6H PRN #8.5 gm 05/06/24 Sulfate Hfa] Ibuprofen [Motrin] 800 mg PO Q8H PRN #30 tab 05/06/24 Promethazine/Dextromethorphan 5 ml PO Q4-6H PRN #150 ml 05/06/24 [Promethazine-Dm 6.25-15 mg/5Ml] Allergies Allergy/AdvReac Type Severity Reaction Status Date / Time Penicillins Allergy Unknown Verified 05/06/24 13:39 Review of Systems ROS Statement: Those systems with pertinent positive or pertinent negative responses have been documented in the HPI. ROS Other: All systems not noted in ROS Statement are negative. Past Medical History Past Medical History: Asthma History of Any Multi-Drug Resistant Organisms: None Reported Past Surgical History: Cholecystectomy Past Psychological History: Anxiety, Bipolar Smoking Status: Never smoker Past Alcohol Use History: None Reported Past Drug Use History: None Reported General Exam Limitations: no limitations General appearance: alert, in no apparent distress Head exam: Present: atraumatic, normocephalic, normal inspection Respiratory exam: Present: normal lung sounds bilaterally. Absent: respiratory distress, wheezes, rales, rhonchi, stridor Cardiovascular Exam: Present: regular rate, normal rhythm, normal heart sounds. Absent: systolic murmur, diastolic murmur, rubs, gallop, clicks Neurological exam: Present: alert, oriented X3, CN II-XII intact Psychiatric exam: Present: normal affect, normal mood Skin exam: Present: warm, dry, intact, normal color. Absent: rash Course Vital Signs 05/06/24 05/06/24 05/06/24 13:37 15:55 16:03 Temperature 98 F Pulse Rate 85 84 80 Respiratory 18 Rate Blood Pressure 124/85 O2 Sat by Pulse 100 Oximetry 05/06/24 17:53 Temperature Pulse Rate 85 Respiratory 18 Rate Blood Pressure 117/84 O2 Sat by Pulse 98 Oximetry Medical Decision Making - Medical Decision Making This is a 39-year-old female who presents to the emergency department for shortness of breath. Was pt. sent in by a medical professional or institution? @ -No Did you speak to anyone other than the patient for history? @ -No Did you review nursing and triage notes? @ -Yes, and I agree, it is accurate with regards to the patient's symptoms. Were old charts reviewed? @ -No Differential Diagnosis? @ -Differential Dyspnea: Coronary syndrome, arrhythmia, tamponade, asthma, COPD, pulmonary embolism, pneumonia, pneumothorax, pulmonary effusion, anaphylaxis, diabetic ketoacidosis, flailed chest, pulmonary contusion, diaphragmatic rupture, anemia, neuromuscular, this is not meant to be an all-inclusive list. EKG interpreted by me (3pts min.)? @ -EKG interpreted by me demonstrating the following: Sinus rhythm. Ventricular rate 84 bpm, MT interval 132 ms, QRS duration 111 ms, QTc 405 ms. X-rays interpreted by me (1pt min.)? @ -Chest x-ray obtained, my interpretation identifies no localized consolidations or infiltrates. CT interpreted by me (1pt min.)? @ -Not obtained U/S interpreted by me (1pt. min.)? @ -Not obtained What testing was considered but not performed? (CT, X-rays, U/S, labs)? Why? @ -None What meds were considered but not given? Why? @ -None Did you discuss the management of the patient with other professionals? @ -No Did you reconcile home meds? @ -No Was smoking cessation discussed for >3mins.? @ -No Was critical care preformed (if so, how long)? @ -No Were there social determinants of health that impacted care today? How? (Homelessness, low income, unemployed, alcoholism, drug addiction, transportation, low edu. Level, literacy, decrease access to med. care, senior living, rehab)? @ -No Was there de-escalation of care discussed even if they declined? (Discuss DNR or withdrawal of care, Hospice)? @ -No What co-morbidities impacted this encounter? (DM, HTN, Smoking, COPD, CAD, Cancer, CVA, Hep., AIDS, mental health diagnosis, sleep apnea, morbid obesity)? @ -Asthma Was patient admitted / discharged? @ -Discharged. Lab work unremarkable including a negative troponin and negative D-dimer. Troponin repeated and remained negative. COVID, influenza, and RSV testing negative. Chest x-ray reveals no acute process. She started to develop a cough while she was here, which she believes was the main cause of her chest pain. She was given anti-inflammatories and cough medication with improvement in both pain and coughing. Breathing treatment administered as well. Prescription for Promethazine DM cough syrup, ibuprofen, and albuterol inhaler provided. Advised follow-up with her PCP for reevaluation. Patient discharged home in stable condition. Case discussed with ED attending Dr. Delonte wesley. Return precautions reviewed in depth, the patient is instructed to return to the emergency department with any new, worsening, or concerning symptoms. Patient verbalized understanding. Undiagnosed new problem with uncertain prognosis? @ -None Drug Therapy requiring intensive monitoring for toxicity (Heparin, Nitro, Insulin, Cardizem)? @ -None Were any procedures done? @ -None Diagnosis/symptom? @ -Shortness of breath, cough, pleurisy Acute, or Chronic, or Acute on Chronic? @ -Acute Uncomplicated (without systemic symptoms) or Complicated (systemic symptoms)? @ -Uncomplicated Side effects of treatment? @ -None Exacerbation, Progression, or Severe Exacerbation] @ -Not applicable Poses a threat to life or bodily function? @ -Unlikely - Lab Data Result diagrams: 05/06/24 14:04 05/06/24 14:04 Lab Results 05/06/24 05/06/24 05/06/24 Range/Units 14:04 14:04 14:04 WBC 9.1 (3.8-10.6) k/uL RBC 4.71 (3.80-5.40) m/uL Hgb 13.0 (11.4-16.0) gm/dL Hct 39.2 (34.0-46.0) % MCV 83.3 (80.0-100.0) fL MCH 27.5 (25.0-35.0) pg MCHC 33.1 (31.0-37.0) g/dL RDW 14.4 (11.5-15.5) % Plt Count 298 (150-450) k/uL MPV 7.4 Neutrophils % 72 % Lymphocytes % 19 % Monocytes % 4 % Eosinophils % 3 % Basophils % 0 % Neutrophils # 6.6 (1.3-7.7) k/uL Lymphocytes # 1.8 (1.0-4.8) k/uL Monocytes # 0.4 (0-1.0) k/uL Eosinophils # 0.3 (0-0.7) k/uL Basophils # 0.0 (0-0.2) k/uL PT 11.1 (10.0-12.5) sec INR 1.0 (<1.2) APTT 25.3 (22.0-30.0) sec D-Dimer 0.40 (<0.60) mg/L FEU Sodium 138 (137-145) mmol/L Potassium 3.7 (3.5-5.1) mmol/L Chloride 108 H (98-107) mmol/L Carbon Dioxide 24 (22-30) mmol/L Anion Gap 6 mmol/L BUN 13 (7-17) mg/dL Creatinine 0.90 (0.52-1.04) mg/dL Est GFR (CKD-EPI)AfAm >90 (>60 ml/min/1.73 sqM) Est GFR (CKD-EPI)NonAf 81 (>60 ml/min/1.73 sqM) Glucose 109 H (74-99) mg/dL Plasma Lactic Acid Drew (0.7-2.0) mmol/L Calcium 8.7 (8.4-10.2) mg/dL Magnesium 2.1 (1.6-2.3) mg/dL Total Bilirubin 0.8 (0.2-1.3) mg/dL AST 25 (14-36) U/L ALT 27 (4-34) U/L Alkaline Phosphatase 88 (38-126) U/L Troponin I (0.000-0.034) ng/mL Total Protein 6.8 (6.3-8.2) g/dL Albumin 4.2 (3.5-5.0) g/dL HCG, Qual Not Detected Influenza Type A (PCR) (Not Detectd) Influenza Type B (PCR) (Not Detectd) RSV (PCR) (Not Detectd) SARS-CoV-2 (PCR) (Not Detectd) 05/06/24 05/06/24 05/06/24 Range/Units 14:04 14:04 14:10 WBC (3.8-10.6) k/uL RBC (3.80-5.40) m/uL Hgb (11.4-16.0) gm/dL Hct (34.0-46.0) % MCV (80.0-100.0) fL MCH (25.0-35.0) pg MCHC (31.0-37.0) g/dL RDW (11.5-15.5) % Plt Count (150-450) k/uL MPV Neutrophils % % Lymphocytes % % Monocytes % % Eosinophils % % Basophils % % Neutrophils # (1.3-7.7) k/uL Lymphocytes # (1.0-4.8) k/uL Monocytes # (0-1.0) k/uL Eosinophils # (0-0.7) k/uL Basophils # (0-0.2) k/uL PT (10.0-12.5) sec INR (<1.2) APTT (22.0-30.0) sec D-Dimer (<0.60) mg/L FEU Sodium (137-145) mmol/L Potassium (3.5-5.1) mmol/L Chloride (98-107) mmol/L Carbon Dioxide (22-30) mmol/L Anion Gap mmol/L BUN (7-17) mg/dL Creatinine (0.52-1.04) mg/dL Est GFR (CKD-EPI)AfAm (>60 ml/min/1.73 sqM) Est GFR (CKD-EPI)NonAf (>60 ml/min/1.73 sqM) Glucose (74-99) mg/dL Plasma Lactic Acid Drew 1.3 (0.7-2.0) mmol/L Calcium (8.4-10.2) mg/dL Magnesium (1.6-2.3) mg/dL Total Bilirubin (0.2-1.3) mg/dL AST (14-36) U/L ALT (4-34) U/L Alkaline Phosphatase (38-126) U/L Troponin I <0.012 (0.000-0.034) ng/mL Total Protein (6.3-8.2) g/dL Albumin (3.5-5.0) g/dL HCG, Qual Influenza Type A (PCR) Not Detected (Not Detectd) Influenza Type B (PCR) Not Detected (Not Detectd) RSV (PCR) Not Detected (Not Detectd) SARS-CoV-2 (PCR) Not Detected (Not Detectd) 05/06/24 Range/Units 16:29 WBC (3.8-10.6) k/uL RBC (3.80-5.40) m/uL Hgb (11.4-16.0) gm/dL Hct (34.0-46.0) % MCV (80.0-100.0) fL MCH (25.0-35.0) pg MCHC (31.0-37.0) g/dL RDW (11.5-15.5) % Plt Count (150-450) k/uL MPV Neutrophils % % Lymphocytes % % Monocytes % % Eosinophils % % Basophils % % Neutrophils # (1.3-7.7) k/uL Lymphocytes # (1.0-4.8) k/uL Monocytes # (0-1.0) k/uL Eosinophils # (0-0.7) k/uL Basophils # (0-0.2) k/uL PT (10.0-12.5) sec INR (<1.2) APTT (22.0-30.0) sec D-Dimer (<0.60) mg/L FEU Sodium (137-145) mmol/L Potassium (3.5-5.1) mmol/L Chloride (98-107) mmol/L Carbon Dioxide (22-30) mmol/L Anion Gap mmol/L BUN (7-17) mg/dL Creatinine (0.52-1.04) mg/dL Est GFR (CKD-EPI)AfAm (>60 ml/min/1.73 sqM) Est GFR (CKD-EPI)NonAf (>60 ml/min/1.73 sqM) Glucose (74-99) mg/dL Plasma Lactic Acid Drew (0.7-2.0) mmol/L Calcium (8.4-10.2) mg/dL Magnesium (1.6-2.3) mg/dL Total Bilirubin (0.2-1.3) mg/dL AST (14-36) U/L ALT (4-34) U/L Alkaline Phosphatase (38-126) U/L Troponin I <0.012 (0.000-0.034) ng/mL Total Protein (6.3-8.2) g/dL Albumin (3.5-5.0) g/dL HCG, Qual Influenza Type A (PCR) (Not Detectd) Influenza Type B (PCR) (Not Detectd) RSV (PCR) (Not Detectd) SARS-CoV-2 (PCR) (Not Detectd) - Radiology Data Radiology results: report reviewed, image reviewed Disposition Clinical Impression: Shortness of breath, Cough, Pleurisy Disposition: HOME SELF-CARE Instructions (If sedation given, give patient instructions): Pleurisy (ED), Noncardiac Chest Pain (ED) Additional Instructions: Return to the emergency department with any new, worsening, or concerning symptoms. Alternate with ibuprofen and Tylenol as needed for pain relief. You can take the cough medication up to every 4-6 hours as needed. Use the albuterol inhaler as 1 to 2 puffs every 4-6 hours to help with shortness of breath. Follow up with your primary care provider in 1-2 days. Prescriptions: Albuterol Sulfate [Albuterol Sulfate Hfa] 1 - 2 puff PO Q4-6H PRN #8.5 gm PRN Reason: Shortness Of Breath Ibuprofen [Motrin] 800 mg PO Q8H PRN #30 tab PRN Reason: Pain Promethazine/Dextromethorphan [Promethazine-Dm 6.25-15 mg/5Ml] 5 ml PO Q4-6H PRN #150 ml PRN Reason: Cough Is patient prescribed a controlled substance at d/c from ED?: No Referrals: Brea Randall MD [Primary Care Provider] - 1-2 days Time of Disposition: 17:31
[2024-05-06 14:37] LABS: ALT 27 U/L (4-34); AST 25 U/L (14-36); African American GFR (CKD) >90 (>60 ml/min/1.73 sqM); Albumin 4.2 g/dL (3.5-5.0); Alkaline Phosphatase 88 U/L (38-126); Anion Gap 6 mmol/L; Blood Urea Nitrogen 13 mg/dL (7-17); Calcium 8.7 mg/dL (8.4-10.2); Carbon Dioxide 24 mmol/L (22-30); Chloride 108 mmol/L (98-107); Glucose 109 mg/dL (74-99); Magnesium 2.1 mg/dL (1.6-2.3); Non-African American GFR(CKD) 81 (>60 ml/min/1.73 sqM); Partial Thromboplastin Time 25.3 sec (22.0-30.0); Potassium 3.7 mmol/L (3.5-5.1); Prothrombin Time 11.1 sec (10.0-12.5); Sodium 138 mmol/L (137-145); Total Bilirubin 0.8 mg/dL (0.2-1.3); Total Protein 6.8 g/dL (6.3-8.2)
[2024-05-06 15:10] LABS: HCG,Qualitative Serum Not Detected
[2024-05-06] MEDS: BENZONATATE 100 MG CAP PO STA (15:37)
[2024-05-06] MEDS: MORPHINE SULFATE 4 MG/ML SYRINGE IVP STA (15:38)
[2024-05-06] MEDS: IPRATROPIUM-ALBUTEROL 3 ML NEB INHALATION STA (15:52)
[2024-05-06] MEDS: guaiFENesin-Coden 100-10MG/5ML 10 ML CUP PO STA (16:25)
[2024-05-06 17:54] VITALS: BP 117/84; PULSE 85
== END 2024-05-06 17:54 | disposition home or self-care (01) ==
LOC: EC 13:33
DX: R09.1 Pleurisy (principal); R05.9 Cough, unspecified; R06.02 Shortness of breath; J45.909 Unspecified asthma, uncomplicated; Z88.0 Allergy status to penicillin; Z79.899 Other long term (current) drug therapy
CPT/HCPCS: 36415; 94640; 93005; 85379; 80053; 83605; 83735; 84484; 85025; 85610; 85730; 84703; 87636; 71046; 99285; 96374; 96375; J2270; J1885